=== PATIENT | female | born 1955 | race Caucasian/White ===

== ENCOUNTER → 2020-03-11 13:13 | Outpatient (BNVA) | payer MEDICARE, BC, SELFPAY | PROVIDERS: PCP Internal Medicine; Referring Provider Internal Medicine; Visit Provider Surgery | DX: N60.91 Unspecified benign mammary dysplasia of right breast (principal) | CPT/HCPCS: 99212 ==

== ENCOUNTER 2020-03-22 13:53 | Outpatient (REF) | payer MEDICARE, BC, SELFPAY ==
--- NOTE | 2020-03-22 | MM_ITS ---
EXAMINATION: MM SCREENING DIGITAL BREAST TOMOSYNTHESIS, BILATERAL CLINICAL INFORMATION: Screening. Asymptomatic. Personal history ADH right breast 2011. Family history breast cancer, aunt. The lifetime risk of breast cancer based on the Tyrer-Cuzick Model is 23%. COMPARISON: Mammography: 11/12/2018, 11/23/2017, 10/24/2016 TECHNIQUE: Digital breast tomosynthesis is performed in both the craniocaudal and mediolateral oblique views along with computer-aided detection (CAD). Synthesized 2D images are generated from the tomosynthesis. Additional left MLO view is provided. FINDINGS: There are scattered areas of fibroglandular density (ACR BI-RADS breast composition Category b). There is no developing density or interval mass or architectural abnormality. There are scattered bilateral round and coarse and vascular calcifications again seen. The axilla and skin contours are unremarkable. The left breast has increased tightly grouped calcifications central breast mid depth, possibly fibroadenomatous change. Patient will be recalled for additional imaging. MM/MM tomosynthesis screening BI IMPRESSION: 1. Left: Increased tightly grouped calcifications central breast, possibly fibroadenomatous change. 2. Right: No mammographic evidence of malignancy. ASSESSMENT: BI-RADS 0: Incomplete - Need Additional Imaging Evaluation RECOMMENDATION: 1. Additional views of the left breast (magnification CC, magnification ML. 2. Radiology department staff will contact the patient for additional imaging. 3. The lifetime risk of breast cancer based on the Tyrer-Cuzick Model is 23%. Additional annual adjunct screening with breast MRI may be of benefit in women with a risk score of 20% or greater. This patient's information was entered into a reminder system with a target due date for their next mammogram.
== END 2020-03-22 13:54 | disposition home or self-care (01) ==
LOC: HO.MAMMO 13:53
PROVIDERS: PCP Internal Medicine; Visit Provider Internal Medicine
DX: Z12.31 Encounter for screening mammogram for malignant neoplasm of breast (principal)
CPT/HCPCS: 77063; 77067

== ENCOUNTER 2020-04-13 11:24 | Outpatient (REF) | payer MEDICARE, BC, SELFPAY ==
--- NOTE | 2020-04-13 | MM_ITS ---
EXAMINATION: MM DIAGNOSTIC DIGITAL MAMMOGRAPHY, LEFT CLINICAL INFORMATION: Left breast calcifications. COMPARISON: Mammography: 11/12/2018 and studies dating back to 10/24/2010. TECHNIQUE: Digital mammography is performed in the following views: Magnification views of the left breast in craniocaudal and 90-degree mediolateral views. FINDINGS: There are scattered areas of fibroglandular density (ACR BI-RADS breast composition Category b). There are 3 groupings of calcifications noted about the central aspect of the left breast with slow progression over time and with the more inferior medial grouping show mild increase since study of 2018. The calcifications appear similar without linear or branching forms. The calcifications do not layer on 90-degree mediolateral views. Recommend 6-month follow-up magnification films of the left breast for follow-up. Results are provided to the patient at time of visit by the technologist. MM/MM added views LT IMPRESSION: Probably benign left breast calcifications. ASSESSMENT: BI-RADS 3: Probably Benign. RECOMMENDATION: Diagnostic mammography in 6 months. This patient's information was entered into a reminder system with a target due date for their next mammogram.
== END 2020-04-13 11:25 | disposition home or self-care (01) ==
LOC: HO.MAMMO 11:24
PROVIDERS: Visit Provider Internal Medicine
DX: R92.1 Mammographic calcification found on diagnostic imaging of breast (principal)
CPT/HCPCS: 77065

== ENCOUNTER 2020-10-12 14:54 | Outpatient (REF) | payer MEDICARE, BC, SELFPAY ==
--- NOTE | ~2020-10-12 | MM_ITS ---
EXAMINATION: MM DIAGNOSTIC DIGITAL BREAST TOMOSYNTHESIS, LEFT CLINICAL INFORMATION: Short interval follow-up probable benign calcifications central left breast. Personal history ADH contralateral right breast 2011. Family history breast cancer, maternal aunt. The lifetime risk of breast cancer based on the Tyrer-Cuzick Model is 22%. COMPARISON: Mammography: 04/13/2020, 03/22/2020 (BI-RADS 0), 11/12/2018, 11/05/2017 TECHNIQUE: Digital breast tomosynthesis is performed in both the craniocaudal and mediolateral oblique views along with computer-aided detection (CAD). Synthesized 2D images are generated from the tomosynthesis. Additional magnification CC and magnification ML views are obtained. FINDINGS: There are scattered areas of fibroglandular density (ACR BI-RADS breast composition Category b). Parenchymal pattern is similar to prior studies and there is no interval mass or architectural abnormality or developing density. The calcifications for follow-up central left breast appear coarse and circumferentially arranged, likely fibroadenomatous change. There are 2 other grouped benign chronic coarse calcifications slightly more lateral on the CC view, and slightly more superior on the ML view, both are chronic and unremarkable. Results are provided to the patient at time of visit by the technologist. MM/MM tomosynthesis diagnostic LT IMPRESSION: Calcifications for follow-up central left breast are relatively coarse and circumferentially arranged, likely fibroadenomatous change. No significant change from prior diagnostic mammography. ASSESSMENT: BI-RADS 3: Probably Benign RECOMMENDATION: Diagnostic mammography at time of annual bilateral exam, due in 6 months. This patient's information was entered into a reminder system with a target due date for their next mammogram.
== END 2020-10-12 14:55 | disposition home or self-care (01) ==
LOC: HO.MAMMO 14:54
PROVIDERS: Visit Provider Internal Medicine
DX: R92.1 Mammographic calcification found on diagnostic imaging of breast (principal)
CPT/HCPCS: 77061; 77065

== ENCOUNTER 2020-12-18 10:46 | Outpatient (REF) | payer MEDICARE, BC, SELFPAY ==
[2020-12-18 11:51] LABS: Alanine Aminotransferase 20 U/L (0-31); Albumin Level 4.3 g/dL (3.5-5.0); Alkaline Phosphatase 84 U/L (39-117); Anion Gap 15 (12-20); Aspartate Amino Transferase 17 U/L (5-31); Bilirubin Total 1.5 mg/dL (0.0-1.0); Blood Urea Nitrogen 20 mg/dL (9-16); Calcium 9.7 mg/dL (8.4-10.2); Carbon Dioxide 26 mmol/L (22-29); Chloride 105 mmol/L (96-108); Cholesterol 143 mg/dL; Estimated Glomerular Filt Rate > 60; Glucose Fasting 113 mg/dL (60-99); HDL Cholesterol 47 mg/dL; LDL Cholesterol Calculated 72 mg/dl; Potassium 4.3 mmol/L (3.3-5.1); Sodium 142 mmol/L (135-145); Total Protein 7.3 g/dL (6.5-8.0); Triglycerides 124 mg/dL
[2020-12-18 12:13] LABS: Vitamin D 25-OH Total 41.7 ng/mL (>30)
== END 2020-12-18 10:47 | disposition home or self-care (01) ==
LOC: HO.HMGCLDS 10:46
PROVIDERS: PCP Internal Medicine; Visit Provider Internal Medicine
DX: E78.00 Pure hypercholesterolemia, unspecified (principal); I10 Essential (primary) hypertension; Z78.0 Asymptomatic menopausal state
CPT/HCPCS: 36415; 80053; 80061; 82306

== ENCOUNTER 2021-04-14 14:02 | Outpatient (REF) | payer MEDICARE, BC, SELFPAY ==
--- NOTE | ~2021-04-14 | MM_ITS ---
EXAMINATION: MM DIAGNOSTIC DIGITAL BREAST TOMOSYNTHESIS, BILATERAL CLINICAL INFORMATION: Follow up left breast calcifications. Screening right breast study. The lifetime risk of breast cancer based on the Tyrer-Cuzick Model is 21.5%. Additional annual screening with breast MRI may be of benefit in women with a Score of 20% or greater. COMPARISON: Mammography: 10/12/2020 and studies dating back to 08/11/2011. TECHNIQUE: Digital breast tomosynthesis is performed in both the craniocaudal and mediolateral oblique views along with computer-aided detection (CAD). Synthesized 2D images are generated from the tomosynthesis. Spot magnification views of the left breast performed in 90 degree mediolateral and craniocaudal views. FINDINGS: There are scattered areas of fibroglandular density (ACR BI-RADS breast composition Category b). No new abnormal dominant mass or more suspicious grouping of microcalcifications identified. There appears to be stable appearance of left breast calcifications compared to previous studies dating back to 04/13/2020. The one grouping in question has a similar appearance to a few other tight grouping of calcifications which may represent calcifying fibroadenomas. Recommend 1 year follow-up diagnostic study of both breasts to include spot magnification views of the left breast for calcifications. Results are provided to the patient at time of visit by the technologist. MM/MM tomosynthesis diagnostic BI IMPRESSION: There are no significant changes from prior study. ASSESSMENT: BI-RADS 3: Probably Benign. RECOMMENDATION: Diagnostic mammography at time of next annual exam, due in 12 months. This patient's information was entered into a reminder system with a target due date for their next mammogram.
== END 2021-04-14 14:03 | disposition home or self-care (01) ==
LOC: HO.MAMMO 14:02
PROVIDERS: Visit Provider Internal Medicine
DX: R92.1 Mammographic calcification found on diagnostic imaging of breast (principal)
CPT/HCPCS: 77062; 77066

== ENCOUNTER 2021-08-29 10:46 | Outpatient (REF) | payer MEDICARE, BC, SELFPAY ==
[2021-08-29 14:14] LABS: Alanine Aminotransferase 36 U/L (0-31); Albumin Level 4.5 g/dL (3.5-5.0); Alkaline Phosphatase 79 U/L (39-117); Anion Gap 10 (12-20); Aspartate Amino Transferase 34 U/L (5-31); Bilirubin Total 1.6 mg/dL (0.0-1.0); Blood Urea Nitrogen 22 mg/dL (9-16); Calcium 9.7 mg/dL (8.4-10.2); Carbon Dioxide 27 mmol/L (22-29); Chloride 107 mmol/L (96-108); Cholesterol 167 mg/dL; Estimated Glomerular Filt Rate > 60; Glucose Fasting 118 mg/dL (60-99); HDL Cholesterol 48 mg/dL; LDL Cholesterol Calculated 82 mg/dl; Potassium 4.1 mmol/L (3.3-5.1); Sodium 140 mmol/L (135-145); Total Protein 7.4 g/dL (6.5-8.0); Triglycerides 188 mg/dL
[2021-08-29 14:35] LABS: Vitamin D 25-OH Total 34.5 ng/mL (>30)
[2021-08-29 14:46] LABS: Estimated Average Glucose 114 mg/dL; Hemoglobin A1c % 5.6 %
== END 2021-08-29 10:47 | disposition home or self-care (01) ==
LOC: HO.HMGCLDS 10:46
PROVIDERS: PCP Internal Medicine; Visit Provider Internal Medicine
DX: R73.01 Impaired fasting glucose (principal); E78.00 Pure hypercholesterolemia, unspecified; I10 Essential (primary) hypertension; Z78.0 Asymptomatic menopausal state
CPT/HCPCS: 36415; 80053; 80061; 82306; 83036

== ENCOUNTER → 2021-10-18 13:50 | Outpatient (BNVA) | payer MEDICARE, BC, SELFPAY | PROVIDERS: PCP Internal Medicine; Visit Provider Surgery | DX: N60.91 Unspecified benign mammary dysplasia of right breast (principal) | CPT/HCPCS: 99212 ==

== ENCOUNTER 2022-04-18 13:54 | Outpatient (REF) | payer MEDICARE, BC, SELFPAY ==
--- NOTE | ~2022-04-18 | MM_ITS ---
EXAMINATION: MM DIAGNOSTIC DIGITAL BREAST TOMOSYNTHESIS, BILATERAL CLINICAL INFORMATION: Due for yearly. Also follow-up probable benign tightly grouped circumferentially arranged calcifications central left breast. Prior history contralateral right breast ADH, 2011. The lifetime risk of breast cancer based on the Tyrer-Cuzick Model is 20.5%. COMPARISON: Mammography: 04/14/2021, 10/12/2020, 04/13/2020, 03/22/2020 (BI-RADS 0), 11/12/2018. TECHNIQUE: Digital breast tomosynthesis is performed in both the craniocaudal and mediolateral oblique views along with computer-aided detection (CAD). Synthesized 2D images are generated from the tomosynthesis. Additional magnification left CC and magnification left ML views are obtained. FINDINGS: There are scattered areas of fibroglandular density (ACR BI-RADS breast composition Category b). Parenchymal pattern is similar to prior studies and there is no interval mass or developing density or architectural abnormality. The axilla and skin contours are unremarkable. The calcifications for follow-up central left breast are tightly grouped circumferentially arranged. Some of the calcifications are slightly coarser and there are some additional calcifications within the circular arrangement since 2019. They are likely fibroadenomatous change similar to other tightly grouped coarse calcifications in the left breast. Calcifications will be reassessed again at next bilateral annual mammography to conclude long-term surveillance. Results are provided to the patient at time of visit by the technologist. MM/MM tomosynthesis diagnostic BI IMPRESSION: Left: -Probable benign calcifications central left breast, likely fibroadenomatous change. Right: -No mammographic evidence of malignancy. ASSESSMENT: BI-RADS 3: Probably Benign RECOMMENDATION: Diagnostic mammography at time of next annual exam, due in 12 months. This patient's information was entered into a reminder system with a target due date for their next mammogram.
== END 2022-04-18 13:55 | disposition home or self-care (01) ==
LOC: HO.MAMMO 13:54
PROVIDERS: PCP Internal Medicine; Visit Provider Internal Medicine
DX: R92.1 Mammographic calcification found on diagnostic imaging of breast (principal)
CPT/HCPCS: 77062; 77066

== ENCOUNTER 2022-05-09 08:35 | Outpatient (REF) | payer MEDICARE, BC, SELFPAY ==
[2022-05-09 11:54] LABS: Alanine Aminotransferase 26 U/L (0-31); Anion Gap 11 (12-20); Aspartate Amino Transferase 23 U/L (5-31); Blood Urea Nitrogen 20 mg/dL (9-16); Calcium 9.7 mg/dL (8.4-10.2); Carbon Dioxide 28 mmol/L (22-29); Chloride 106 mmol/L (96-108); Cholesterol 158 mg/dL; Estimated Glomerular Filt Rate > 60; Glucose Fasting 122 mg/dL (60-99); HDL Cholesterol 50 mg/dL; LDL Cholesterol Calculated 76 mg/dl; Potassium 4.3 mmol/L (3.3-5.1); Sodium 141 mmol/L (135-145); Triglycerides 164 mg/dL
== END 2022-05-09 08:36 | disposition home or self-care (01) ==
LOC: HO.HMGCLDS 08:35
PROVIDERS: PCP Internal Medicine; Visit Provider Internal Medicine
DX: R73.01 Impaired fasting glucose (principal); I10 Essential (primary) hypertension; E78.00 Pure hypercholesterolemia, unspecified
CPT/HCPCS: 36415; 80048; 80061; 84450; 84460

== ENCOUNTER 2022-05-16 13:10 | Outpatient (AMB) | payer MEDICARE, BC, SELFPAY ==
--- NOTE | 2022-05-16 13:38 | MHC.PC.OV ---
Vital Signs 05/16/22 13:39 Height 5 ft 7 in Weight 199 lb BMI 31.1 BP 144/72 H Blood Pressure Location Lt brachial Position Sitting Pulse 62 Pulse Source Pulse Oximeter Pulse Oximetry (%) 96 Oxygen Delivery Method Room Air Intake Visit Reasons: 6 month follow up Intake Note: Pt is here today for her 6 months f/u Allergies lisinopril Adverse Reaction (Verified 06/07/23 10:55) Cough Medication List - Last Reconciled 05/16/22 by Falguni Chavez MD amlodipine 5 mg PO DAILY ascorbate calcium (vitamin C) 500 mg PO DAILY aspirin 81 mg PO DAILY atorvastatin 10 mg PO DAILY calcium-vitamin D3-vitamin K 500-100-40 mg-unit-mcg 1 tab PO DAILY cholecalciferol (vitamin D3) 25 mcg PO DAILY glucosamine-chondroitin 250-200 mg (Osteo Bi-Flex) 2 tabs PO TID losartan 100 mg PO DAILY metoprolol succinate ER 100 mg PO DAILY dpkpihwy-arlgekw-bjew-lutein tabs PO Tobacco use date assessed: 05/16/22 Fall risk assessment: No Falls in past year Last assessed Fall Risk: 05/16/22 HPI 6 month follow up HPI Details 66-year-old lady with hypertension, with impaired fasting glucose and hypercholesterolemia, here today for follow-up. She has been compliant with taking her medications, but blood pressure still not at goal of less than 130/80. She had recent fasting labs done which showed lipids within normal limits, but fasting glucose is in the prediabetic range. She is up-to-date with her screening mammogram, up-to-date with her COVID vaccination and flu shot but has not yet had her pneumococcal vaccine. [facility] Medical History Intermittent lightheadedness Semicircular canal dehiscence syndrome Postural dizziness On beta danyell at home Elevated cholesterol HTN (hypertension) Family history of colon cancer in mother Impaired fasting glucose Cough due to TRACE inhibitor Arthralgia Atypical ductal hyperplasia of right breast Surgical History Hx of colonoscopy History of right breast biopsy Social History Housing: House Alcohol intake: never Patient Tobacco Use Status: Never used Tobacco e-Cigarette/Vaping Use: Never Used Second Hand Smoke Exposure: No service: No Current occupational status: retired Cognitive needs: No Hearing needs: No Vision needs: No Questionnaire PHQ-9 Over the last 2 weeks, how often have you been bothered by any of the following problems? Depression Screening Interpretation: Negative Source: Developed by Drs. Sancho Grant, Corina Hollingsworth, Олег Benz and colleagues, with an educational devonte from [employer]. Thrive Questionnaire Date Thrive assessed: 09/06/21 ELIU-7 AMB Questionnaire ELIU-7 Date ELIU - 7 assessed: 09/06/21 Source: Developed by Drs. Sancho Grant, Corina Hollingsworth, Олег Benz and colleagues, with an educational devonte from [employer]. Review of Systems Const Denies chills, Denies fatigue, Denies fever(s), Denies headache(s) and Denies weakness Eyes Reports no additional complaints ENT Denies headache(s), Denies nasal congestion, Denies nasal discharge and Denies sore throat Card Denies chest pain, Denies palpitations and Denies dyspnea Resp Denies chest congestion, Denies cough, Denies dyspnea and Denies wheezing GI Denies abdominal pain, Denies change in bowel habits and Denies heartburn Musc Reports arthralgias (recurrent in right hand and shoulders) and Reports stiffness Skin/Breast Denies breast pain, Denies breast mass and Denies rash Neuro Denies headache(s) and Denies weakness Psych Reports as per HPI Endo Denies fatigue, Denies polydipsia, Denies polyuria and Denies palpitations Drake/Lymph Denies easy bruising Aller/Immun Denies seasonal rhinorrhea and Denies wheezing Physical exam (Primary Care) Vital Signs: Last Vital Signs Pulse 62 05/16/22 13:39 BP 144/72 H 05/16/22 13:39 Pulse Ox 96 05/16/22 13:39 Oxygen Delivery Method Room Air 05/16/22 13:39 BMI result Body Mass Index 31.1 Tobacco/Smoking Status: Tobacco use Status Tobacco use date assessed 05/16/22 05/16/22 13:42 Patient Tobacco Use Status Never used Tobacco 05/16/22 13:42 e-Cigarette/Vaping Use Never Used 05/16/22 13:42 Depression Screening Interpretation: Negative Thrive Assessment: Date of Thrive Assessment Date Thrive assessed 09/06/21 05/16/22 13:42 Const General: comfortable, no acute distress and alert Nutritional Appearance: obese Orientation/consciousness: patient oriented x3 HENMT Ears: external ears normal General nose exam: Normal external nose present Mouth: moist mucous membranes Eyes General: appearance normal, both eyes and all related structures Conjunctivae: conjunctivae normal Sclerae: sclerae normal Pupils: Equal, round and reactive pupils present EOM: EOMs intact bilaterally Neck Neck: Yes full ROM, Yes no lymphadenopathy and Yes supple Resp Effort & Inspection: normal respiratory effort and able to speak in complete sentences Auscultation: clear to auscultation bilaterally Cardio Rate: regular rate Rhythm: regular rhythm Heart sounds: S1 normal heart sound present and S2 normal heart sound present GI Palpation (GI): Soft to palpation, nontender and no masses Auscultation: normal bowel sounds Skin General skin exam: no rashes or lesions noted Neuro General: patient oriented x3, gait normal, tone normal, moves all extremities, Normal light touch and pain sensation and no focal motor deficits Cranial nerves: Yes CN's II-XII intact bilaterally and Yes Equal, round and reactive pupils present Cognition (Neuro): normal cognition Extrem Other: S Results AMB Hemoglobin A1c AMB Hemoglobin A1c 5.4 % Last Edit by Alejandrina Blackmon CMA on 05/16/22 14:05 Immunizations pneumoc 20-tessy conj-dip cr(PF) 0.5 mL IM syringe Performing Provider: Falguni Chavez MD Performing Location: [facility] Administered by: Alejandrina Blackmon CMA on 05/16/22 14:02 Dose Route Admin Location Dispensed Lot Number Expiration Date NDC Merchandising Representative 0.5 mL IM Right Deltoid 0.5 mL [id number] 08/05/23 [id number] LK [employer] VIS Given Date VIS Provided VIS Publication Date 05/16/22 Single Vaccine 21 Eligibility Eligibility Date Funding Source Not [facility] Eligible 05/16/22 Private Results Reviewed Results Reviewed: Laboratory Last Values Hgb A1c (Clinic) 5.4 % (4.0-6.0) 05/16/22 14:00 ENTERED: 05/09/22-[address]: ORDERED: Met Prof Fast, AST, ALT, Lipid Panel Test Result Flag Reference Site Sodium 141 135-145 mmol/L Potassium 4.3 3.3-5.1 mmol/L CL 106 96-108 mmol/L CO2 28 22-29 mmol/L Gap 11 L 12-20 BUN 20 H 9-16 mg/dL Creat 0.88 0.5-1.4 mg/dL EGFR > 60 NOTE: For -[place] individuals, multiply the result by 1.210. Chronic Kidney Disease: Estimated GFR < 60 mL/min/1.73m2 Severe Kidney Disease: Estimated GFR < 15 mL/min/1.73m2 FBS 122 H 60-99 mg/dL A fasting glucose from 100-125 mg/dl is considered impaired (pre-diabetes). CA 9.7 8.4-10.2 mg/dL AST (GOT) 23 5-31 U/L ALT (GPT) 26 0-31 U/L Triglyceride 164 mg/dL Desirable Triglyceride: less than 150 mg/dL Borderline High Triglyceride 150-199 mg/dL High Triglyceride: 200-499 mg/dL Very High Triglyceride: greater than or equal to 5OO mg/dL Chol 158 mg/dL Desirable Cholesterol: less than 200 mg/dL Borderline High Cholesterol: 200-239 mg/dL High Cholesterol: greater than 239 mg/dL LDL Calculated 76 mg/dl Desirable LDL: less than 100 mg/dL Near Optimal/Above Optimal LDL: 110-129 mg/dL Borderline High LDL: 130-159 mg/dL High LDL: 160-189 mg/dL Very High LDL: greater than or equal to 190 mg/dL HDL 50 mg/dL Desirable HDL: greater than 40 mg/dL Note: This HDL assay may give artificially low results in patients with liver disease. Assessment and Plan Assessment & Plan (1) Family history of colon cancer in mother: Code(s): Z80.0 - Family history of malignant neoplasm of digestive organs Plan: Referred to GI for colon cancer screening (2) Colon cancer screening: Code(s): Z12.11 - Encounter for screening for malignant neoplasm of colon (3) Menopause syndrome: Code(s): N95.1 - Menopausal and female climacteric states Plan: Ordered vitamin-D level and basic metabolic panel in 6 months. Ordered DEXA scan to screen for osteoporosis (4) Hypertension: Code(s): I10 - Essential (primary) hypertension Qualifiers: Hypertension type: primary hypertension Qualified Code(s): I10 - Essential (primary) hypertension Plan: Blood pressure not at goal, increase amlodipine dose to 10 mg daily, continued on losartan 100 mg daily and metoprolol succinate ER 100 mg daily. Adherence to low-salt diet and getting regular exercise strongly recommended . Return to clinic to see nurse navigator in 2 weeks to check blood pressure (5) Hypercholesterolemia: Code(s): E78.00 - Pure hypercholesterolemia, unspecified Plan: Recent fasting labs showed elevated triglycerides with normal LDL cholesterol and HDL. Continued atorvastatin 10 mg daily, reinforced importance of following low-cholesterol diet and getting regular exercise. Recheck fasting lipid again in 6 months (6) Impaired fasting glucose: Code(s): R73.01 - Impaired fasting glucose Plan: Ordered hemoglobin A1c, basic metabolic panel to be repeated in 6 months.. Impaired glucose metabolism O2 increases risk for developing diabetes mellitus type 2, as well as heart attack and stroke later on. Lifestyle changes at just weight loss, healthy eating habits, and regular exercise are important, and can prevent the progression to diabetes (7) Need for pneumococcal 20-valent conjugate vaccination: Code(s): Z23 - Encounter for immunization Plan: Prevnar 20 given today Orders: Orders AMB Hemoglobin A1c 05/16/22 R73.01 - Impaired fasting glucose Pneumococcal 20 Immunization 05/16/22 Z23 - Encounter for immunization XR DEXA axial skeleton 04/20/23 N95.1 - Menopausal and female climacteric states Basic Metabolic Panel Fasting 6 Months I10 - Essential (primary) hypertension, E78.00 - Pure hypercholesterolemia, unspecified, R73.01 - Impaired fasting glucose Alanine Aminotransferase 6 Months I10 - Essential (primary) hypertension, E78.00 - Pure hypercholesterolemia, unspecified, R73.01 - Impaired fasting glucose Aspartate Amino Transferase 6 Months I10 - Essential (primary) hypertension, E78.00 - Pure hypercholesterolemia, unspecified, R73.01 - Impaired fasting glucose Hemoglobin A1c 6 Months I10 - Essential (primary) hypertension, E78.00 - Pure hypercholesterolemia, unspecified, R73.01 - Impaired fasting glucose Lipid Panel 6 Months I10 - Essential (primary) hypertension, E78.00 - Pure hypercholesterolemia, unspecified, R73.01 - Impaired fasting glucose Vitamin D 25-OH Total 6 Months I10 - Essential (primary) hypertension, E78.00 - Pure hypercholesterolemia, unspecified, R73.01 - Impaired fasting glucose, N95.9 - Unspecified menopausal and perimenopausal disorder Referrals Gastroenterology Referral Z12.11 - Encounter for screening for malignant neoplasm of colon, Z80.0 - Family history of malignant neoplasm of digestive organs Medications: Changed From amlodipine 5 mg PO DAILY 90 tabs 1RF To amlodipine 10 mg PO DAILY 90 tabs 1RF Coding Level of Care Code Est Pt Level 4 (49304) Diagnoses Family history of colon cancer in mother Z80.0 Colon cancer screening Z12.11 Menopause syndrome N95.1 Primary hypertension I10 Hypertension type: primary hypertension Hypercholesterolemia E78.00 Impaired fasting glucose R73.01 Need for pneumococcal 20-valent conjugate vaccination Z23
[2022-05-16 13:39] VITALS: BP 144/72; PULSE 62; O2SAT 96; BMI 31.1
== END 2022-05-16 14:14 | disposition home or self-care (01) ==
LOC: HO.HMGC 13:11
PROVIDERS: PCP Internal Medicine; Visit Provider Internal Medicine
DX: Z80.0 Family history of malignant neoplasm of digestive organs (principal); Z12.11 Encounter for screening for malignant neoplasm of colon; N95.1 Menopausal and female climacteric states; I10 Essential (primary) hypertension; E78.00 Pure hypercholesterolemia, unspecified; R73.01 Impaired fasting glucose; Z23 Encounter for immunization
CPT/HCPCS: 83036; 90471; 90677; 99214; 99499

== ENCOUNTER → 2022-07-07 11:49 | Outpatient (BNVA) | payer MEDICARE, BC, SELFPAY | PROVIDERS: PCP Internal Medicine; Visit Provider Nurse Practitioner Family | DX: Z12.11 Encounter for screening for malignant neoplasm of colon (principal) | CPT/HCPCS: 99202 ==

== ENCOUNTER → 2022-10-17 13:43 | Outpatient (BNVA) | payer MEDICARE, BC, SELFPAY | PROVIDERS: PCP Internal Medicine; Visit Provider Surgery | DX: N60.91 Unspecified benign mammary dysplasia of right breast (principal) | CPT/HCPCS: 99212 ==

== ENCOUNTER 2022-10-20 12:42 | Day surgery (SDC) | payer MEDICARE, BC, SELFPAY ==
--- NOTE | 2022-10-18 14:39 | P.CONAN_ITS ---
Documented by User: Nilam Miranda NP 10/18/22 14:46 HPI - Anesthesia Eval Consult details Narrative: 67yo F for Colonoscopy PMFSH Active Problems Active Problems: All Active Problems (Updated 10/17/22 @ 16:19 by Saira Pittman, RN) Hypertension (Acute) Hypercholesterolemia (Acute) Family history of colon cancer in mother (Acute) Impaired fasting glucose (Acute) Cough due to TRACE inhibitor (Acute) Arthralgia (Acute) Atypical ductal hyperplasia of right breast (Acute) Past Medical History Medical History (Updated 10/17/22 @ 16:19 by Saira Pittman, GEOFFREY) Arthralgia Atypical ductal hyperplasia of right breast Cough due to TRACE inhibitor Elevated cholesterol Family history of colon cancer in mother HTN (hypertension) Impaired fasting glucose On beta danyell at home Surgical History Surgical History History of right breast biopsy Social History Social History Housing: House Alcohol intake: never Patient Tobacco Use Status: Never used Tobacco e-Cigarette/Vaping Use: Never Used Second Hand Smoke Exposure: No Use of substances other than those prescribed or required for medical reasons: No Are you DNR?: No Advance Directives: No Advance Directives Information Provided: Yes Recently lost weight without trying: No Nutrition Risks: No Nutritional Risk service: No Current occupational status: retired Cognitive needs: No Hearing needs: No Vision needs: No Meds Allergies Allergy/AdvReac Type Severity Reaction Status Date / Time lisinopril AdvReac Cough Verified 10/17/22 13:51 Home Medications Medication Instructions Recorded Confirmed Last Taken Type aspirin 81 mg tablet,delayed 81 mg PO DAILY 03/11/20 10/17/22 Unknown History release cholecalciferol (vitamin D3) 25 25 mcg PO DAILY 11/16/20 10/17/22 Unknown History mcg (1,000 unit) capsule ascorbate calcium (vitamin C) 500 500 mg PO DAILY 12/28/20 10/17/22 Unknown History mg tablet calcium-vitamin D3-vitamin K 500 1 tab PO DAILY 12/28/20 10/17/22 Unknown History mg-100 unit-40 mcg chewable tablet glucosamine-chondroitin 250 mg-200 2 tab PO TID 12/28/20 10/17/22 Unknown History mg tablet (Osteo Bi-Flex) ucvhcjwg-olwhrdm-kemf-lutein tablet tab PO 12/28/20 10/17/22 Unknown History Exam Exam Date and Time: October 18, 2022 143 Pertinent Lab Results Pertinent Lab Results: Laboratory Tests 05/09/22 08:49 Sodium 141 Potassium 4.3 Chloride 106 Carbon Dioxide 28 BUN 20 H Creatinine 0.88 Assessment and Plan Assessment Anesthesia Assessment: Chart Reviewed Documented by User: Diana Montague MD 10/20/22 14:33 [facility] Past Medical History Medical History (Updated 10/17/22 @ 16:19 by Saira Pittman RN) Arthralgia Atypical ductal hyperplasia of right breast Cough due to TRACE inhibitor Elevated cholesterol Family history of colon cancer in mother HTN (hypertension) Impaired fasting glucose On beta danyell at home Family History Family history of problems with anesthesia: No Surgical History Surgical History History of right breast biopsy History of Problems with Anesthesia: No Social History Social History Housing: House Alcohol intake: never Patient Tobacco Use Status: Never used Tobacco e-Cigarette/Vaping Use: Never Used Second Hand Smoke Exposure: No Use of substances other than those prescribed or required for medical reasons: No Are you DNR?: No Advance Directives: No Advance Directives Information Provided: Yes Recently lost weight without trying: No Nutrition Risks: No Nutritional Risk service: No Current occupational status: retired Cognitive needs: No Hearing needs: No Vision needs: No Meds Allergies Allergy/AdvReac Type Severity Reaction Status Date / Time lisinopril AdvReac Cough Verified 10/17/22 13:51 Home Medications Medication Instructions Recorded Confirmed Last Taken Type aspirin 81 mg tablet,delayed 81 mg PO DAILY 03/11/20 10/17/22 Unknown History release cholecalciferol (vitamin D3) 25 25 mcg PO DAILY 11/16/20 10/17/22 Unknown History mcg (1,000 unit) capsule ascorbate calcium (vitamin C) 500 500 mg PO DAILY 12/28/20 10/17/22 Unknown History mg tablet calcium-vitamin D3-vitamin K 500 1 tab PO DAILY 12/28/20 10/17/22 Unknown History mg-100 unit-40 mcg chewable tablet glucosamine-chondroitin 250 mg-200 2 tab PO TID 12/28/20 10/17/22 Unknown History mg tablet (Osteo Bi-Flex) ftyljbdf-xfpgyow-rwif-lutein tablet tab PO 12/28/20 10/17/22 Unknown History Exam Airway Mallampati Class: II TM Dist: >3cm Neck ROM: Full Heart: rrr Lungs: cta Assessment and Plan Assessment Anesthesia Assessment: Anesthesia Plan Discussed Final Anesthetic Review Family History of Problems with Anesthesia: No History of Problems with Anesthesia: No NPO: Yes ASA Class: III Final Preanesthetic Review: No Changes in Pt Med Stat, Meds/Allgs Chart Reviewed and Consent Obtained/Reviewed Patient Risk: Intermediate Procedure Risk: Intermediate Anesthetic Plan Anesthetic Plan: MAC: Disposition: Standard PACU
[2022-10-20 13:24] VITALS: BMI 32.3
[2022-10-20 13:34] VITALS: BP 183/72; PULSE 81; RESP 16; TEMP 37.3; O2SAT 96
--- NOTE | 2022-10-20 13:45 | MHC.SHP ---
Pre-Procedural Eval Section A Date of Service: 10/20/22 The patient is an INPATIENT: No The History & Physical has been completed within 30 days and I have reviewed it.: No Section B Chief Complaint: Colon cancer screening Relevant Family History (Specify if Yes): Yes Relevant Social History: None Present Medications: see Short Stay Collaborative assessment Medical History: Significant History (Atypical ductal hyperplasia of right breast Cough due to TRACE inhibitor Family history of colon cancer in mother Impaired fasting glucose) History of Previous Operations: Relevant previous surgery/procedure and date(s) (History of right breast biopsy) Allergies: Allergies Allergy/AdvReac Type Severity Reaction Status Date / Time lisinopril AdvReac Cough Verified 10/17/22 13:51 Review of Systems Sugical H&P ROS: Negative: Constitution, Cardiovascular, Respiratory and Gastrointestinal Exam Surgical H&P Exam: Normal: Heart, Normal: Lungs, Normal: Extremities and Normal: Abdomen Plan Diagnosis/Plan: Unchanged I have reviewed the history and physical and performed a pertinent physical examination on my patient. No changes have occurred unless specified. Time Spent With Patient Time: Total time managing care of this patient today ____ minutes.
[2022-10-20] MEDS: Lactated Ringers 1,000 ML 100 ML IVCONT (13:53)
--- NOTE | 2022-10-20 14:33 | P.OP_ITS ---
Operative Note Operative Note Date of Service: 10/20/22 Narrative: COLONOSCOPY TILL CECUM WITH BIOPSIES AND SNARE POLYPECTOMY Pre-op diagnosis: Colon cancer screening, family history of colon cancer Post-op diagnosis:? Colon polyps, diverticulosis, hemorrhoids Endoscopist:? Dutch Joyce MD Anesthesia:?MAC Consent: Indications for the procedure and potential complications of bleeding, perforation, reaction to medications and missed diagnosis were discussed with the patient and informed consent was obtained. Instrument: Olympus PCF H 190 L variable stiffness pediatric colonoscope Monitoring: Vital signs and clinical assessment, intermittent blood pressure monitoring, continuous EKG monitoring, Pulse oximetry and Carbon Dioxide monitoring were done throughout the procedure. Please see anesthesia flowsheet. Colon withdrawl time was 13 minutes. Procedure: The patient was placed in the left lateral decubitis position and pre-procedure medications were administered. After a digital rectal examination of the ano-rectum, the video colonoscope was inserted into the rectum and advanced through the colon to the cecum. The colonoscope was slowly withdrawn in a retrograde panoramic fashion and the colon mucosa was carefully examined including a retroflexed view of the rectum. Findings and interventions are described below. Procedure Difficulty: Without difficulty Findings: Terminal Ileum: Not evaluated Cecum: Normal Ascending Colon: Normal Transverse Colon: Normal Descending Colon: Moderate diverticulosis Sigmoid Colon: A 5-6 mm diminutive appearing polyp - removed with a cold bx. A 7-8 mm sessile polyp - removed with a cold snare. Moderate diverticulosis Rectum: Normal Ano-rectum: Moderate internal hemorrhoids Colon preparation: Good Impression and Post Procedure Diagnosis: Colonoscopy Findings: Two small polyps removed Moderate diverticulosis seen in the left colon Moderate hemorrhoids on retroflexed exam. Plan: Await pathology results Patient has an appointment on 11/03/22 in the [facility] with Sushma Pinto FNP- BC. Repeat Colonoscopy interval based on path results - in 5 years if polyps are adenomatous and 10 years if polyps are hyperplastic. Above findings were reviewed with the patient and colon polyps and diverticulosis handouts were given in the discharge area
[2022-10-20 15:10] VITALS: BP 136/58; PULSE 67; RESP 14; TEMP 37.1; O2SAT 96
[2022-10-20 15:25] VITALS: BP 160/57; PULSE 67; RESP 16; TEMP 37.4; O2SAT 97
== END 2022-10-20 15:47 | disposition home or self-care (01) ==
PROVIDERS: PCP Internal Medicine; Visit Provider Internal Medicine Gastroenterology
PROC: 0DJD8ZZ Inspection of Lower Intestinal Tract, Via Natural or Artificial Opening Endoscopic (ICD-10-PCS; CPT 45378; principal; 2022-10-20 14:30)
DX: Z12.11 Encounter for screening for malignant neoplasm of colon (principal); Z80.0 Family history of malignant neoplasm of digestive organs; K63.5 Polyp of colon; K57.30 Diverticulosis of large intestine without perforation or abscess without bleeding; K64.8 Other hemorrhoids; I10 Essential (primary) hypertension; E78.00 Pure hypercholesterolemia, unspecified; R73.01 Impaired fasting glucose; Z79.82 Long term (current) use of aspirin; Z79.899 Other long term (current) drug therapy; Z88.8 Allergy status to other drugs, medicaments and biological substances
CPT/HCPCS: 45385; 45380; 88305

== ENCOUNTER 2022-11-03 10:36 | Outpatient (AMB) | payer MEDICARE, BC, SELFPAY ==
[2022-11-03 10:50] VITALS: BP 157/67; PULSE 56; BMI 32.9
--- NOTE | 2022-11-03 10:50 | A.OFFVIS_ITS ---
Intake Vital Signs 11/03/22 10:50 Height 5 ft 7 in Weight 210 lb 5.136 oz BMI 32.9 BP 157/67 H Blood Pressure Location Lt brachial Position Sitting Pulse 56 Intake Visit Reasons: S/P [place] screening; Dr. 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 Joyce HPI Details LAST VISIT: Colon cancer screening Patient denies any GI, cardiac or respiratory symptoms.? Denies any issues with anesthesia in the past.? Denies any history of sleep apnea.? No history infectious diseases in the past or present.? Patient is on low-dose aspirin. Family history of colorectal cancer in patient's mom and maternal grandfather. Patient denies melena, hematochezia, unintentional weight loss or ribbon like stools.? Discussed at length the pre-procedure,? prep, diet & medications as well as what to expect prior, during and after the procedure.?? Stressed the importance of good bowel prep. ?Recommended the use of Vaseline or Calmoseptine OTC & baby wipes with bowel movements to promote comfort.? ?Patient verbalizes understanding and agrees to plan of care.? She was given the opportunity to ask questions and all questions answered.? We will see her after the procedure.? Plan Medications New bisacodyl (Dulcolax (bisacodyl)) take 2 tabs at noon the day before your colonoscopy 10 mg (2 x 5 mg) PO ONCE 1 day 2 tabs 0RF Z12.11 polyethylene glycol 3350 (Miralax) As directed by gastroenterology department at [facility] 238 grams PO ONCE 238 grams 0RF Z12.11 COLONOSCOPY: Findings: Terminal Ileum: Not evaluated Cecum:? Normal Ascending Colon:? Normal Transverse Colon:? Normal Descending Colon:? Moderate diverticulosis Sigmoid Colon:? A 5-6 mm diminutive appearing polyp - removed with a cold bx. A 7-8 mm sessile polyp - removed with a cold snare. Moderate diverticulosis Rectum:? Normal Ano-rectum:? Moderate internal hemorrhoids Colon preparation:? Good? Impression and Post Procedure Diagnosis: Colonoscopy Findings: Two small polyps removed Moderate diverticulosis seen in the left colon Moderate hemorrhoids on retroflexed exam. Plan: Await pathology results Repeat Colonoscopy interval based on path results - in 5 years if polyps are adenomatous and 10 years if polyps are hyperplastic. PATHOLOGY RESULTS: Diagnosis Colon, sigmoid, polypectomies (2):? Hyperplastic mucosal polyps. TODAY'S VISIT: Patient is here today for follow-up and to discuss colonoscopy results. Patient denies any ill effects from the prep, anesthesia or procedure itself. Patient states that she has been feeling well without any GI concerning symptoms. Patient had 1 polyp removed from sigmoid colon. Biopsy showed hyperplastic mucosal polyp. Patient will need to repeat colonoscopy in 10 years. Patient voices no concerns. Denies melena, hematochezia, unintentional weight loss or ribbon like stools. Denies any dyspepsia, dysphagia or odynophagia. FOR[facility]LY [facility] Medical History Arthralgia Atypical ductal hyperplasia of right breast Cough due to TRACE inhibitor Elevated cholesterol Family history of colon cancer in mother HTN (hypertension) Impaired fasting glucose On beta danyell at home Surgical History History of right breast biopsy Hx of colonoscopy Social History Housing: House Alcohol intake: never Patient Tobacco Use Status: Never used Tobacco e-Cigarette/Vaping Use: Never Used Second Hand Smoke Exposure: No service: No Current occupational status: retired Cognitive needs: No Hearing needs: No Vision needs: No Review of Systems Const Denies weight gain and Denies weight loss ENT Reports no additional complaints, Denies dysphagia and Denies odynophagia Card Reports no additional complaints Resp Reports no additional complaints GI Denies abdominal pain, Denies belching, Denies melena, Denies bloating, Denies change in bowel habits, Denies dysphagia, Denies excessive flatus, Denies dyspepsia, Denies heartburn, Denies diarrhea, Denies loose stools, Denies nausea, Denies odynophagia and Denies vomiting Musc Reports no additional complaints Neuro Reports no additional complaints Psych Reports no additional complaints Endo Reports no additional complaints Physical Exam Vital Signs: Last Vital Signs Pulse 56 11/03/22 10:50 BP 157/67 H 11/03/22 10:50 BMI result Body Mass Index 32.9 Const General: healthy appearing, no acute distress and well developed Nutritional Appearance: obese Orientation/consciousness: patient oriented x3 HEENT Head: Yes normal to inspection, Yes normocephalic and Yes atraumatic Face and sinus: Yes normal facial exam Mouth: Normal oral and palatal mucosa present Throat: Yes posterior oropharynx normal, Yes tonsils normal and Yes uvula midline Eyes General: appearance normal, both eyes and all related structures Neck Neck: Yes normal visual inspection, Yes full ROM and Yes trachea midline Thyroid: Thyroid normal Resp Effort & Inspection: normal respiratory effort, able to speak in complete sentences, no tracheal deviation and symmetric chest movement Auscultation: clear to auscultation bilaterally Cardio Rate: regular rate Heart sounds: S1 normal heart sound present and S2 normal heart sound present GI Inspection: Yes normal to inspection, No distended and Yes obesity Palpation (GI): Soft to palpation, not firm, nontender and No hepatosplenomegaly present Auscultation: normal bowel sounds General: Yes no CVA tenderness Back/Spine/Pelvis Back: no CVA tenderness Skin General skin exam: elasticity normal, turgor normal and dry skin Neuro General: patient oriented x3 Psych Appearance: grossly normal Mental Status: mental status grossly normal Speech and movement: Normal speech and movement present Affect: normal affect Assessment & Plan Assessment & Plan (1) Status post colonoscopy: Code(s): Z98.890 - Other specified postprocedural states Plan: Hyperplastic mucosal polyp found in the sigmoid colon. Patient will repeat colonoscopy in 10 years, sooner if clinically necessary. (2) Diverticulosis: Code(s): K57.90 - Diverticulosis of intestine, part unspecified, without perforation or abscess without bleeding Plan: Moderate diverticulosis in the left side of the colon. Patient was encouraged to increase fiber in her diet. High-fiber diet list given to patient. Patient will follow-up with our office on as needed basis. She is agreeable to this plan and verbalizes understanding of instructions. She was given the opportunity to ask questions and all questions answered. Thank you for allowing me to participate in her care Coding Level of Care Code Est Pt Level 3 (43046) Diagnoses Status post colonoscopy Z98.890 Diverticulosis K57.90 Time Spent (min) 30 Comment 20 minutes spent with patient and additional 10 minutes spent reviewing her records
== END 2022-11-03 12:05 | disposition home or self-care (01) ==
PROVIDERS: PCP Internal Medicine; Visit Provider Nurse Practitioner Family
DX: Z98.890 Other specified postprocedural states (principal); K57.90 Diverticulosis of intestine, part unspecified, without perforation or abscess without bleeding
CPT/HCPCS: 99213

== ENCOUNTER → 2022-11-03 10:36 | Outpatient (BNVA) | payer MEDICARE, BC, SELFPAY | PROVIDERS: PCP Internal Medicine; Visit Provider Nurse Practitioner Family | DX: K57.90 Diverticulosis of intestine, part unspecified, without perforation or abscess without bleeding (principal); Z98.890 Other specified postprocedural states | CPT/HCPCS: 99212 ==

== ENCOUNTER 2022-11-29 08:40 | Outpatient (REF) | payer MEDICARE, BC, SELFPAY ==
[2022-11-29 11:45] LABS: Estimated Average Glucose 108 mg/dL; Hemoglobin A1c % 5.4 %
[2022-11-29 11:55] LABS: Alanine Aminotransferase 23 U/L (0-31); Anion Gap 11 (12-20); Aspartate Amino Transferase 19 U/L (5-31); Blood Urea Nitrogen 21 mg/dL (9-16); Calcium 9.7 mg/dL (8.4-10.2); Carbon Dioxide 28 mmol/L (22-29); Chloride 107 mmol/L (96-108); Cholesterol 151 mg/dL; Estimated Glomerular Filt Rate 54; Glucose Fasting 134 mg/dL (60-99); HDL Cholesterol 47 mg/dL; LDL Cholesterol Calculated 65 mg/dl; Potassium 3.8 mmol/L (3.3-5.1); Sodium 142 mmol/L (135-145); Triglycerides 196 mg/dL
[2022-11-29 12:17] LABS: Vitamin D 25-OH Total 48.3 ng/mL (>30)
== END 2022-11-29 08:41 | disposition home or self-care (01) ==
LOC: HO.HMGCLDS 08:40
PROVIDERS: PCP Internal Medicine; Visit Provider Internal Medicine
DX: E78.00 Pure hypercholesterolemia, unspecified (principal); I10 Essential (primary) hypertension; R73.01 Impaired fasting glucose; M81.0 Age-related osteoporosis without current pathological fracture
CPT/HCPCS: 36415; 80048; 80061; 82306; 83036; 84450; 84460

== ENCOUNTER 2022-12-06 10:34 | Outpatient (AMB) | payer MEDICARE, BC, SELFPAY ==
--- NOTE | 2022-12-06 10:57 | MHC.PC.OV ---
Vital Signs 12/06/22 11:13 Height 5 ft 7 in Weight 205 lb BMI 32.1 BP 138/70 Blood Pressure Location Lt brachial Position Sitting Pulse 68 Pulse Source Pulse Oximeter Pulse Oximetry (%) 96 Oxygen Delivery Method Room Air Intake Visit Reasons: 6 month follow up Intake Note: Pt is here today for her 6months f/u labs and also took a fall at home x3days ago Rt arm hurts Allergies lisinopril Adverse Reaction (Verified 12/06/22 11:28) Cough Medication List - Last Reconciled 12/06/22 by Falguni Chavez MD amlodipine 10 mg PO DAILY ascorbate calcium (vitamin C) 500 mg PO DAILY aspirin 81 mg PO DAILY atorvastatin 10 mg PO DAILY calcium-vitamin D3-vitamin K 500-100-40 mg-unit-mcg 1 tab PO DAILY cholecalciferol (vitamin D3) 25 mcg PO DAILY glucosamine-chondroitin 250-200 mg (Osteo Bi-Flex) 2 tabs PO TID losartan 100 mg PO DAILY metoprolol succinate ER 100 mg PO DAILY joyrepbd-txwezzj-xzdz-lutein tabs PO Tobacco use date assessed: 12/06/22 Fall risk assessment: 2 + Falls in past year Last assessed Fall Risk: 12/06/22 Dental Screening Dental Screen Date: 12/06/22 Did you have a dental visit in the last 12 months?: Yes Did you have a dental problem in the last 6 months where you did not have access to dental care?: No Was dental information given to patient?: Patient has dentist HPI 6 month follow up HPI Details 67-year-old lady with dyslipidemia, hypertension, obesity, here today for follow-up visit. Patient has been compliant with taking her medications, with blood pressure today within normal limits. She had recent fasting labs done which showed electrolytes, liver enzymes lipids and vitamin-D level within normal limits, her fasting blood sugar was mildly elevated but her hemoglobin A1c is within normal limits. She however has been having recurrent episodes of dizziness , occurs suddenly, and has no triggers. This has led to her falling many times, it with last episode occurring about 3 days ago, when she suddenly felt dizzy while walking and try to break her fall with her right arm . Complains of pain over upper arm, with decreased range of motion in right shoulder joint due to pain and stiffness. 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 She has been seen at that time by Dr. Healy, who referred her for vestibular rehab therapy which did not afford any improvement at all.. She has been told at that time to learn to live with it. [facility] Medical History (Updated 12/06/22 @ 11:49 by Falguni Chavez MD) Arthralgia Atypical ductal hyperplasia of right breast Cough due to TRACE inhibitor Elevated cholesterol Family history of colon cancer in mother HTN (hypertension) Impaired fasting glucose On beta danyell at home Postural dizziness Semicircular canal dehiscence syndrome Surgical History History of right breast biopsy Hx of colonoscopy Social History Housing: House Alcohol intake: never Patient Tobacco Use Status: Never used Tobacco e-Cigarette/Vaping Use: Never Used Second Hand Smoke Exposure: No service: No Current occupational status: retired Cognitive needs: No Hearing needs: No Vision needs: No Questionnaire PHQ-9 Over the last 2 weeks, how often have you been bothered by any of the following problems? 1. Little interest or pleasure in doing things: not at all 2. Feeling down, depressed, or hopeless: not at all 3. Trouble falling or staying asleep, or sleeping too much: not at all 4. Feeling tired or having little energy: not at all 5. Poor appetite or overeating: not at all 6. Feeling bad about yourself - or that you are a failure or have let yourself or your family down: not at all 7. Trouble concentrating on things, such as reading the newspaper or watching television: not at all 8. Moving or speaking so slowly that other people could have noticed. Or the opposite - being so fidgety or restless that you have been moving around a lot more than usual: not at all 9. Thoughts that you would be better off or of hurting yourself in some way: not at all Total score: 0 Depression Screening Interpretation: Negative 44680 - PHQ-9 Billing: Yes Source: Developed by Drs. Sancho Grant, Corina HollingsworthОлег and colleagues, with an educational devonte from [employer]. Thrive Questionnaire Date Thrive assessed: 12/06/22 I am a: Patient What is your living situation today?: I have a steady place to live Within the past 12 months, did the food you bought not last and you didn't have the money to get more?: Never true Within the past 12 months, did you worry whether your food would run out before you got money to buy more?: Never true Do you have trouble paying for medicines?: No Do you have trouble getting transportation to medical appointments?: No Do you have trouble paying your heating and electricity bill?: No Do you have trouble taking care of your child, family member or friend?: No Do you have trouble with day-to-day activities such as bathing, preparing meals, shopping, managing finances, etc.?: No Are you currently unemployed and looking for a job?: No Are you interested in more education?: No AUDIT C Alcohol Use Questionnaire (AUDIT-C) 1. How often do you have a drink containing alcohol?: Never Total Score: 0 ELIU-7 AMB Questionnaire ELIU-7 Date ELIU - 7 assessed: 12/06/22 Feeling nervous, anxious, or on edge: 0 = Not at all Not being able to stop or control worryin = Not at all Worrying too much about different things: 0 = Not at all Trouble relaxin = Not at all Being so restless that it is hard to sit still: 0 = Not at all Becoming easily annoyed or irritable: 0 = Not at all Feeling afraid as if something awful might happen: 0 = Not at all Total ELIU-7 score (0-4 normal; 5-9 mild; 10-14 moderate; 15-21 severe): 0 Source: Developed by Drs. Sancho Grant, Олег Knott and colleagues, with an educational devonte from [employer]. ELIU-7 Assessment Billing ELIU-7 Assessment Tool: ELIU-7 Assessment 17473 Review of Systems Const Denies chills, Denies fatigue, Denies fever(s), Denies headache(s) and Denies weakness Eyes Reports no additional complaints ENT Denies headache(s), Denies nasal congestion, Denies nasal discharge and Denies sore throat Card Denies chest pain, Denies palpitations and Denies dyspnea Resp Denies chest congestion, Denies cough, Denies dyspnea and Denies wheezing GI Denies abdominal pain, Denies change in bowel habits and Denies heartburn Musc Reports arthralgias (recurrent in right hand and shoulders) and Reports stiffness Skin/Breast Denies breast pain, Denies breast mass and Denies rash Neuro Denies headache(s) and Denies weakness Psych Reports as per HPI Endo Denies fatigue, Denies polydipsia, Denies polyuria and Denies palpitations Drake/Lymph Denies easy bruising Aller/Immun Denies seasonal rhinorrhea and Denies wheezing Physical exam (Primary Care) Vital Signs: Last Vital Signs Pulse 68 12/06/22 11:13 BP 138/70 12/06/22 11:13 Pulse Ox 96 12/06/22 11:13 Oxygen Delivery Method Room Air 12/06/22 11:13 BMI result Body Mass Index 32.1 Tobacco/Smoking Status: Tobacco use Status Tobacco use date assessed 12/06/22 12/06/22 10:59 Patient Tobacco Use Status Never used Tobacco 12/06/22 10:59 e-Cigarette/Vaping Use Never Used 12/06/22 10:59 PHQ-9: PHQ-9 Score PHQ-9: Total score 0 12/06/22 11:48 Depression Screening Interpretation: Negative Thrive Assessment: Date of Thrive Assessment Date Thrive assessed 12/06/22 12/06/22 11:21 Const General: comfortable, no acute distress and alert Nutritional Appearance: obese Orientation/consciousness: patient oriented x3 HENMT Ears: external ears normal General nose exam: Normal external nose present Mouth: moist mucous membranes Eyes General: appearance normal, both eyes and all related structures Conjunctivae: conjunctivae normal Sclerae: sclerae normal Pupils: Equal, round and reactive pupils present EOM: EOMs intact bilaterally Neck Neck: Yes full ROM, Yes no lymphadenopathy and Yes supple Resp Effort & Inspection: normal respiratory effort and able to speak in complete sentences Auscultation: clear to auscultation bilaterally Cardio Rate: regular rate Rhythm: regular rhythm Heart sounds: S1 normal heart sound present and S2 normal heart sound present GI Palpation (GI): Soft to palpation, nontender and no masses Auscultation: normal bowel sounds Skin General skin exam: no rashes or lesions noted Neuro General: patient oriented x3, gait normal, tone normal, moves all extremities, Normal light touch and pain sensation and no focal motor deficits Cranial nerves: Yes CN's II-XII intact bilaterally and Yes Equal, round and reactive pupils present Cognition (Neuro): normal cognition Extrem Other: Slight tenderness on palpation over right biceps, no gross bone deformity or joint swelling seen Results Reviewed Results Reviewed: SPEC : [id number] HARLAN: 11/29/22-UNK STATUS: COMP REQ : [id number] RECD: 11/29/[address]: Falguni Chavez MD COMP: 11/29/22-1216 ENTERED: 11/29/22 [facility] DR: ORDERED: Met Prof Fast, AST, ALT, Lipid Panel, Vitamin D 25-OH Test Result Flag Reference Site Sodium 142 135-145 mmol/L Potassium 3.8 3.3-5.1 mmol/L CL 107 96-108 mmol/L CO2 28 22-29 mmol/L Gap 11 L 12-20 BUN 21 H 9-16 mg/dL Creat 1.01 0.5-1.4 mg/dL EGFR 54 NOTE: For -Vincentian individuals, multiply the result by 1.210. Chronic Kidney Disease: Estimated GFR < 60 mL/min/1.73m2 Severe Kidney Disease: Estimated GFR < 15 mL/min/1.73m2 FBS 134 H 60-99 mg/dL A fasting glucose of 126 mg/dl or greater on more than one occasion is considered diagnostic of diabetes. CA 9.7 8.4-10.2 mg/dL AST (GOT) 19 5-31 U/L ALT (GPT) 23 0-31 U/L Triglyceride 196 mg/dL Desirable Triglyceride: less than 150 mg/dL Borderline High Triglyceride 150-199 mg/dL High Triglyceride: 200-499 mg/dL Very High Triglyceride: greater than or equal to 5OO mg/dL Chol 151 mg/dL Desirable Cholesterol: less than 200 mg/dL Borderline High Cholesterol: 200-239 mg/dL High Cholesterol: greater than 239 mg/dL LDL Calculated 65 mg/dl Desirable LDL: less than 100 mg/dL Near Optimal/Above Optimal LDL: 110-129 mg/dL Borderline High LDL: 130-159 mg/dL High LDL: 160-189 mg/dL Very High LDL: greater than or equal to 190 mg/dL HDL 47 mg/dL Desirable HDL: greater than 40 mg/dL Note: This HDL assay may give artificially low results in patients with liver disease. Vit D 25-OH Tot 48.3 >30 ng/mL Health Based Reference Values* < 20 ng/mL Deficient 20-30 ng/mL Insufficient > 30 ng/mL Sufficient Laboratory Tests 11/29/22 Unknown Estimat Average Glucose 108 Hemoglobin A1c % 5.4 Assessment and Plan Assessment & Plan (1) Semicircular canal dehiscence syndrome: Comment: left side seen on CT and MRI in 2017, no improvement with vestibular rehab therapy Code(s): H83.8X9 - Other specified diseases of inner ear, unspecified ear Plan: Patient reports worsening frequency of lightheadedness, causing frequent falls. Has tried vestibular rehab in the past which has not helped. Referred to ENT for further evaluation and management (2) Postural dizziness: Code(s): R42 - Dizziness and giddiness (3) Right shoulder pain: Code(s): M25.511 - Pain in right shoulder Plan: Advised to do range of motion exercises with right arm. X-ray of right shoulder ordered, referred to physical therapy for further evaluation management. (4) History of fall: Code(s): Z91.81 - History of falling (5) Hypertension: Code(s): I10 - Essential (primary) hypertension Qualifiers: Hypertension type: primary hypertension Qualified Code(s): I10 - Essential (primary) hypertension Plan: Better blood pressure controlled seen, continue with amlodipine 10 mg daily, losartan 100 mg daily and metoprolol succinate ER 100 mg daily. Reinforced importance of following a low sodium diet, getting regular exercise, and lowering stress levels. (6) Hypercholesterolemia: Code(s): E78.00 - Pure hypercholesterolemia, unspecified Plan: Reviewed recent fasting lipid profile with patient with levels within normal limits . Continue with atorvastatin 10 mg daily , in addition to adherence to low-cholesterol diet and regular exercise, at least 30 minutes 3 to 4 times a week. Advised patient to make healthy food choices, eat more fruits, vegetables, whole grains, wild caught fish and low-fat dairy. Limit amount of meat and fried or fatty food products, as well as processed foods and fast foods. Follow-up scheduled with repeat fasting lipid panel in 6 months. (7) Impaired fasting glucose: Code(s): R73.01 - Impaired fasting glucose Plan: Your fasting blood sugars elevated above 100 mg/dL. Impaired glucose metabolism O2 at risk for developing diabetes mellitus type 2, as well as heart attack and stroke later on. Lifestyle changes at just weight loss, healthy eating habits, and regular exercise are important, and can prevent the progression to diabetes Orders: Orders PT Evaluation and Treatment 12/06/22 M25.511 - Pain in right shoulder, Z91.81 - History of falling XR shoulder RT min 2V 12/06/22 M25.511 - Pain in right shoulder, Z91.81 - History of falling Alanine Aminotransferase 6 Months E78.00 - Pure hypercholesterolemia, unspecified, I10 - Essential (primary) hypertension, R73.01 - Impaired fasting glucose Aspartate Amino Transferase 6 Months E78.00 - Pure hypercholesterolemia, unspecified, I10 - Essential (primary) hypertension, R73.01 - Impaired fasting glucose Basic Metabolic Panel Fasting 6 Months E78.00 - Pure hypercholesterolemia, unspecified, I10 - Essential (primary) hypertension, R73.01 - Impaired fasting glucose Lipid Panel 6 Months E78.00 - Pure hypercholesterolemia, unspecified, I10 - Essential (primary) hypertension, R73.01 - Impaired fasting glucose Referrals Ear/Nose/Throat Referral H83.8X9 - Other specified diseases of inner ear, unspecified ear, R42 - Dizziness and giddiness Coding Level of Care Code Est Pt Level 4 (84354) Diagnoses Semicircular canal dehiscence syndrome H83.8X9 Postural dizziness R42 Right shoulder pain M25.511 History of fall Z91.81 Hypertension I10 Hypertension type: primary hypertension Hypercholesterolemia E78.00 Impaired fasting glucose R73.01 Additional Codes ELIU-7 Assessment Billing - ELIU-7 Assessment Tool: ELIU-7 Assessment 20863 ([id number])
[2022-12-06 11:13] VITALS: BP 138/70; PULSE 68; O2SAT 96; BMI 32.1
== END 2022-12-06 11:49 | disposition home or self-care (01) ==
PROVIDERS: Visit Provider Internal Medicine
DX: I10 Essential (primary) hypertension (principal); R42 Dizziness and giddiness; Z91.81 History of falling; M25.511 Pain in right shoulder; E78.00 Pure hypercholesterolemia, unspecified; R73.01 Impaired fasting glucose
CPT/HCPCS: 99214

== ENCOUNTER 2022-12-06 11:50 | Outpatient (REF) | payer MEDICARE, BC, SELFPAY ==
--- NOTE | ~2022-12-06 | XR_ITS ---
EXAMINATION: XR SHOULDER, RIGHT CLINICAL INFORMATION: Right shoulder pain. COMPARISON: None available. TECHNIQUE: AP external rotation, Grashey, scapular Y, and axillary views of the right shoulder. FINDINGS: Glenohumeral alignment is anatomic with normal joint space. Hypertrophic changes of the acromioclavicular joint. No displaced fracture or dislocation. No abnormal soft tissue calcifications. XR/XR shoulder RT min 2V IMPRESSION: No acute abnormality.
== END 2022-12-06 11:51 | disposition home or self-care (01) ==
LOC: HO.HMGCX 11:50
PROVIDERS: PCP Internal Medicine; Visit Provider Internal Medicine
DX: M25.511 Pain in right shoulder (principal); Z91.81 History of falling
CPT/HCPCS: 73030

== ENCOUNTER 2023-01-23 11:00 | Outpatient (RCR) | payer MEDICARE, BC, SELFPAY ==
--- NOTE | 2022-12-19 12:53 | MHC.PT.EP ---
[facility] [place] Office [place] Office [place] Office [address] Juve Gilbert [address] [phone] F: [phone] F: [phone] F: [phone] F: [phone] Physical Therapy Plan of Care Date of Evaluation: Date of Surgery: Diagnosis: This is a 67 yo female presenting to skilled PT with a script for R shoulder pain. Assessment: This is a 67 yo female presenting to skilled PT with a script for R shoulder pain. Patient reports a fall 2 weeks ago when she landed on her R side (elbow) on tile. She feels like it was injured more from trying to get off the floor vs the fall itself. Pain is improving but still bothers her when she moves it in all directions, sleeping on that side, driving, ADLs and housework. Pain is sharp with movement and achy at rest. Pain is located at the bicep muscle and medial scapular region. Denies numbness or tingling, radiating symptoms into the lower arm or neck pain. She has been using ice and Alleve for pain relief. Assessment reveals pain that ranges from up to an 8/10 at the worst. Patient demos decreased R shoulder ROM, strength of B scapular muscles and B RTC muscles, s/s with bicep tendon strain and ACJ compression from fall. She demos impaired posture with forward head and rounded shoulders and compensates with adducted and IR posturing for functional movements. Based on functional limitations, impaired QOL and pain tolerance patient is a good candidate for skilled PT 2x/wk for 4wks. Frequency and Duration: The patient will be seen 2x/wk for 4wks Short Term Goals: (In 2 weeks) Demo I with HEP Improve shoulder AROM by at least 10 degs Demo proper scapular recruitment with appropriate shoulder strengthening exercises Subway Train Driver Goals: (in 4 wks) Improve shoulder nonpainful AROM to almost near equal B Demo at least 1 grade improvement in MMT for shoulder flexion, abduction and ER Improve SPADI by at least 10 points Improve overall functional QOL by at least 50% Treatment Plan: Modalities to reduce pain, spasms and effusion. Manual therapy to restore motion and function. Therapeutic exercise to improve strength and flexibility. Neuromuscular re-education for posture and balance. Therapeutic activities to return to functional activities of daily living. Electronically signed by: Lee Ann Sanz PT Please sign and return to therapist. Thank you for your referral.
--- NOTE | 2023-01-02 13:03 | MHC.PT.PR ---
[facility] [place] Office [place] Office [place] Office [address] Juve Gilbert [address] [phone] F: [phone] F: [phone] F: [phone] F: [phone] Physical Therapy Progress Note Diagnosis: This is a 67 yo female presenting to skilled PT with a script for R shoulder pain. Date of Surgery: Date of Evaluation: 12/19/22 Treatments to Date: 5 Cancellations to Date: 0 No Shows to Date: 0 Subjective: Patient reporting she was sore after massage last session. Pain Score and Location: 6 R bicep muscle belly/R shoulder Objective Measures: AROM: flexion 148 (unable to hold position, loses strength at end range), abduction 115, ER in 90 degs 110, IR in 90 degs 75 Assessment: Patient reporting that she feels like she has improved since initial visit however pain continues with abduction and ER. She has pain with household tasks including scooping cat litter, cleaning counters and cooking. She has a hard time sleeping on this side and it effects her UB ADLs. Her AROM flexion 148 (unable to hold position, loses strength at end range), abduction 115, ER in 90 degs 110, IR in 90 degs 75 (improved some from eval). I recommended to her to ask for a referral to the orthopedic for assessment due to nature of injury and continuing symptoms. We have 3 more appointments and will continue to assess as we go. PT Plan: Continue with PT Frequency and Duration: The patient will be seen 3 visits Treatment Plan: Therapeutic Exercise Dynamic Therapeutic Activities Neuromuscular Re-ed Manual Therapies Home Exercise Program Patient Education Hot or Cold Pack Reviewed/ Agreed with Student Documentation: Therapist: Thank you once again for your referral.
--- NOTE | 2023-02-21 10:06 | MHC.PT.DC ---
[facility] [place] Office [place] Office [place] Office [address] Juve Gilbert [address] [phone] F: [phone] F: [phone] F: [phone] F: [phone] Physical Therapy Discharge Report Diagnosis: This is a 67 yo female presenting to skilled PT with a script for R shoulder pain. Date of Surgery: Date of Evaluation: 12/19/22 Date of Discharge: 02/21/23 Treatments to Date: 9 Cancellations to Date: 0 No Shows to Date: 0 Discharge Status: Achieved Goals Improved Function Independent with HEP Discharge Summary: Patient reporting that she is much better, she has no more pain (mild at the most) and reports that she is able to do ADLs and housework again without issues. She is I in her HEP and ready to DC at this time. I closed her chart after 30 days as patient did not return with any further symptoms or need for PT management. Electronically signed by: Lee Ann Sanz, PT Please sign and return to therapist. Thank you for your referral.
== END 2023-02-21 10:06 | disposition home or self-care (01) ==
LOC: HO.PTCHIC 11:00
PROVIDERS: PCP Internal Medicine; Visit Provider Internal Medicine
DX: M25.511 Pain in right shoulder (principal)
CPT/HCPCS: 97110; 97140; 97162; 97530

== ENCOUNTER 2023-05-15 13:46 | Outpatient (REF) | payer MEDICARE, BC, SELFPAY ==
--- NOTE | ~2023-05-15 | MM_ITS ---
EXAMINATION: BONE DENSITOMETRY CLINICAL INDICATION: Menopause. COMPARISON: Previous BD dated 11/12/2018 and baseline BD dated 02/12/2014. TECHNIQUE: Using a Secure [employer] DXA System (software version: 13.1) manufactured by [employer], dual-energy x-ray absorptiometry was performed of the lumbar spine and left hip. The images are of good technical quality. Summary results are attached. FINDINGS: LEFT FEMUR, NECK: Current: BMD 0.913 g/cm2, Z-score 0.2, T-score -0.9, normal. Prior: BMD 0.899 g/cm2. Baseline: BMD 0.885 g/cm2. LEFT FEMUR, TOTAL: Current: BMD 0.954 g/cm2, Z-score 0.4, T-score -0.4, normal, 1.8% increase from previous, 0.6% increase from baseline (<5% change is not significant). Prior: BMD 0.937 g/cm2. Baseline: BMD 0.948 g/cm2. AP SPINE L1-L3 (excluding L4): The data of L1-L4 has been changed to exclude the L4 vertebral body, because degenerative sclerosis at this level may cause overestimation of lumbar spine density. Current: BMD 1.139 g/cm2, Z-score 0.6, T-score -0.3, normal, 5.1% increase from previous, 0.6% increase from baseline (<5% change is not significant). Prior: BMD 1.084 g/cm2. Baseline: BMD 1.132 g/cm2. IDENTIFIED RISK FACTORS: Early menopause, family history (parent hip fracture), left oophorectomy, secondary osteoporosis. HISTORY OF FRACTURE: None listed. MEDICATIONS: Calcium, vitamin D. MM/XR DEXA axial skeleton IMPRESSION: 1. DIAGNOSIS: Normal bone density based on the lowest T-score value of -0.9 in the femoral neck applying World Health Organization criteria. 2. 10-YEAR FRACTURE RISK PREDICTION, FRAX: According to the guidelines, FRAX calculation should only be performed on patients in the osteopenia bone density category. Therefore, FRAX was not performed on this patient. 3. Treatment Recommendations: NOF guidelines recommend consideration for treatment in postmenopausal women and men age 50 and older presenting with the following: -A hip or vertebral (clinical or morphometric) fracture. -T-score less than or equal to -2.5 at the femoral neck or spine after appropriate evaluation to exclude secondary causes. -Low bone mass at the hip or spine and a 10-year fracture probability by FRAX of greater than or equal to 3% for hip fracture or greater than or equal to 20% for major osteoporotic fracture based on the [place] adapted WHO algorithm. 4. Other Recommendations: All treatment decisions require clinical judgment and consideration of individual patient factors, including patient preferences, comorbidities, previous drug use, risk factors not captured in the FRAX model (e.g. frailty, falls, vitamin D deficiency, increased bone turnover, interval significant decline in bone density) and possible under or overestimation of fracture risk by FRAX. FUTURE SCAN RECOMMENDATION: People with diagnosed cases of osteoporosis or at high risk for fracture should have regular bone mineral density tests. For patients eligible for Medicare, routine testing is allowed once every 2 years. The testing frequency can be increased to one year for patients who have rapidly progressing disease, those who are receiving or discontinuing medical therapy to restore bone mass, or have additional risk factors.
--- NOTE | ~2023-05-15 | MM_ITS ---
EXAMINATION: MM DIAGNOSTIC DIGITAL BREAST TOMOSYNTHESIS, BILATERAL CLINICAL INFORMATION: Year 2 6 month follow-up for left breast calcifications centrally which are probably benign. Prior history contralateral right breast ADH, 2011. Patient also due for bilateral screening. COMPARISON: Mammography: 04/18/2022, 04/14/2021, 10/12/2020, 04/13/2020, 03/22/2020 (BI-RADS 0), 11/12/2018. TECHNIQUE: Digital breast tomosynthesis is performed in both the craniocaudal and mediolateral oblique views along with computer-aided detection (CAD). Synthesized 2D images are generated from the tomosynthesis. In addition, 2-D spot magnification views of the left breast were obtained in the CC and ML projections. FINDINGS: There are scattered areas of fibroglandular density (ACR BI-RADS breast composition Category b). The calcifications for follow-up in the central aspect of the left breast are entirely unchanged in both number, arrangement, and morphology compared to prior magnification views, and have remained stable over 2 years, establishing benignity. No further follow-up recommended. Otherwise, there are benign vascular calcifications, and a few scattered bilateral benign dystrophic calcifications. There are no suspicious masses, developing suspicious grouped calcifications, or areas of architectural distortion in either breast. The parenchymal pattern is stable from prior exams. MM/MM tomosynthesis diagnostic BI IMPRESSION: There are no findings suspicious for malignancy in either breast. Left breast central calcifications of remained unchanged and stable over a two-year time period, establishing benignity. No further follow-up is recommended. These are benign. Additional benign findings in both breasts as detailed. Recommend the patient return to routine annual screening. ASSESSMENT: BI-RADS BI-RADS 2 - Benign Findings RECOMMENDATION: 1 year F/U Results were provided to the patient at time of visit by the technologist. This patient's information was entered into a reminder system with a target due date for their next mammogram.
== END 2023-05-15 13:47 | disposition home or self-care (01) ==
LOC: HO.MAMMO 13:46
PROVIDERS: PCP Internal Medicine; Visit Provider Internal Medicine
DX: R92.1 Mammographic calcification found on diagnostic imaging of breast (principal); Z13.820 Encounter for screening for osteoporosis; Z78.0 Asymptomatic menopausal state; Z90.721 Acquired absence of ovaries, unilateral
CPT/HCPCS: 77062; 77066; 77080

== ENCOUNTER → 2023-05-15 14:30 | Outpatient (BNV) | payer MEDICARE, BC, SELFPAY | PROVIDERS: PCP Internal Medicine; Visit Provider Radiology Diagnostic Radiology | DX: R92.1 Mammographic calcification found on diagnostic imaging of breast (principal) | CPT/HCPCS: 77062; 77066 ==

== ENCOUNTER 2023-05-31 11:15 | Outpatient (REF) | payer MEDICARE, BC, SELFPAY ==
[2023-05-31 13:24] LABS: Alanine Aminotransferase 23 U/L (0-31); Anion Gap 15 (12-20); Aspartate Amino Transferase 22 U/L (5-31); Blood Urea Nitrogen 15 mg/dL (9-16); Calcium 9.8 mg/dL (8.4-10.2); Carbon Dioxide 27 mmol/L (22-29); Chloride 104 mmol/L (96-108); Cholesterol 162 mg/dL (<200); Estimated Glomerular Filt Rate 57; Glucose Fasting 124 mg/dL (60-99); HDL Cholesterol 53 mg/dL (>40); LDL Cholesterol Calculated 74 mg/dL (<100); Sodium 142 mmol/L (135-145); Triglycerides 175 mg/dL (<150)
== END 2023-05-31 11:16 | disposition home or self-care (01) ==
LOC: HO.HMGCLDS 11:15
PROVIDERS: PCP Internal Medicine; Visit Provider Internal Medicine
DX: I10 Essential (primary) hypertension (principal); R73.01 Impaired fasting glucose; E78.00 Pure hypercholesterolemia, unspecified
CPT/HCPCS: 36415; 80048; 80061; 84450; 84460

== ENCOUNTER 2023-06-07 10:39 | Outpatient (AMB) | payer MEDICARE, BC, SELFPAY ==
[2023-06-07 10:45] VITALS: BP 140/70; PULSE 71; O2SAT 96; BMI 31.0
--- NOTE | 2023-06-07 10:45 | A.OFFPC_ITS ---
Vital Signs 06/07/23 10:45 Height 5 ft 7 in Weight 198 lb BMI 31.0 BP 140/70 H Blood Pressure Location Lt brachial Position Sitting Pulse 71 Pulse Source Pulse Oximeter Pulse Oximetry (%) 96 Oxygen Delivery Method Room Air Intake Visit Reasons: 6 month f/u Intake Note: Pt is here today for her 6 months f/u Allergies lisinopril Adverse Reaction (Verified 06/07/23 10:55) Cough Medication List - Last Reconciled 06/07/23 by Falguni Chavez MD amlodipine 10 mg PO DAILY ascorbate calcium (vitamin C) 500 mg PO DAILY aspirin 81 mg PO DAILY atorvastatin 10 mg PO DAILY calcium-vitamin D3-vitamin K 500-100-40 mg-unit-mcg 1 tab PO DAILY cholecalciferol (vitamin D3) 25 mcg PO DAILY glucosamine-chondroitin 250-200 mg (Osteo Bi-Flex) 2 tabs PO TID losartan 100 mg PO DAILY metoprolol succinate ER 100 mg PO DAILY pjuokhcj-aqwxebj-smij-lutein tabs PO Tobacco use date assessed: 06/07/23 Fall risk assessment: 1 Fall in past year Last assessed Fall Risk: 06/07/23 Dental Screening Dental Screen Date: 06/07/23 Did you have a dental visit in the last 12 months?: Yes Did you have a dental problem in the last 6 months where you did not have access to dental care?: No Was dental information given to patient?: Patient has dentist HPI 6 month f/u HPI Details 67-year-old lady here today for follow-u p on her hypertension and hyperlipidemia. She is currently taking losartan 100 mg in the morning and amlodipine 10 mg at night together with metoprolol succinate ER 100 mg at bedtime. She has been checking her blood pressure at home and it has been running usually in the 150s over 90s. She has also been experiencing intermittent episodes of fast bounding heart rate on and off over the last week, which last about 10-15 minutes accompanied by dizziness and shortness of breath. This would resolve spontaneously. Denies having any cardiac symptoms at present. EKG done today showed normal sinus rhythm with evidence of left ventricular hypertrophy. Takes atorvastatin 10 mg daily with latest fasting lipids showing normal LDL cholesterol but triglycerides elevated. Recent labs also showed elevated fasting glucose in the prediabetic range. She has been referred to [facility], for evaluation intermittent episodes of positional lightheadedness, and states MRI of the brain with contrast was ordered, which did not show any abnormality. Patient states that they have now referred her to a surgeon for correction of semicircular canal dehiscence [facility] Medical History Intermittent lightheadedness Semicircular canal dehiscence syndrome Postural dizziness On beta danyell at home Elevated cholesterol HTN (hypertension) Family history of colon cancer in mother Impaired fasting glucose Cough due to TRACE inhibitor Arthralgia Atypical ductal hyperplasia of right breast Surgical History Hx of colonoscopy History of right breast biopsy Social History Housing: House Alcohol intake: never Patient Tobacco Use Status: Never used Tobacco e-Cigarette/Vaping Use: Never Used Second Hand Smoke Exposure: No service: No Current occupational status: retired Cognitive needs: No Hearing needs: No Vision needs: No Questionnaire PHQ-9 Over the last 2 weeks, how often have you been bothered by any of the following problems? 1. Little interest or pleasure in doing things: several days 2. Feeling down, depressed, or hopeless: not at all 3. Trouble falling or staying asleep, or sleeping too much: more than half the days 4. Feeling tired or having little energy: several days 5. Poor appetite or overeating: not at all 6. Feeling bad about yourself - or that you are a failure or have let yourself or your family down: not at all 7. Trouble concentrating on things, such as reading the newspaper or watching television: not at all 8. Moving or speaking so slowly that other people could have noticed. Or the opposite - being so fidgety or restless that you have been moving around a lot more than usual: several days 9. Thoughts that you would be better off or of hurting yourself in some way: not at all Total score: 5 Depression Screening Interpretation: Negative Depression Screening Done: Yes 40412 - PHQ-9 Billing: Yes Source: Developed by Drs. Sancho Grant, Corina Hollingsworth, Олег Benz and colleagues, with an educational devonte from [employer]. Thrive Questionnaire Date Thrive assessed: 06/07/23 What is your living situation today?: I choose not to answer this question Within the past 12 months, did the food you bought not last and you didn't have the money to get more?: I choose not to answer this question Within the past 12 months, did you worry whether your food would run out before you got money to buy more?: I choose not to answer this question Do you have trouble paying for medicines?: I choose not to answer this question Do you have trouble getting transportation to medical appointments?: I choose not to answer this question Do you have trouble paying your heating and electricity bill?: I choose not to answer this question Do you have trouble taking care of your child, family member or friend?: I choose not to answer this question Do you have trouble with day-to-day activities such as bathing, preparing meals, shopping, managing finances, etc.?: I choose not to answer this question Are you currently unemployed and looking for a job?: I choose not to answer this question Are you interested in more education?: I choose not to answer this question THRIVE Score: 0 AUDIT C Alcohol Use Questionnaire (AUDIT-C) 1. How often do you have a drink containing alcohol?: Never 3. How often do you have six or more drinks on one occasion?: Never Total Score: 0 ELIU-7 AMB Questionnaire ELIU-7 Date ELIU - 7 assessed: 12/06/22 Feeling nervous, anxious, or on edge: 1 = Several days Not being able to stop or control worryin = Several days Worrying too much about different things: 1 = Several days Trouble relaxin = Several days Being so restless that it is hard to sit still: 0 = Not at all Becoming easily annoyed or irritable: 1 = Several days Feeling afraid as if something awful might happen: 1 = Several days Total ELIU-7 score (0-4 normal; 5-9 mild; 10-14 moderate; 15-21 severe): 6 Source: Developed by Drs. Sancho Grant, Corina Hollingsworth, Олег Benz and colleagues, with an educational devonte from [employer]. ELIU-7 Assessment Billing ELIU-7 Assessment Tool: ELIU-7 Assessment 66940 Review of Systems Const Denies chills, Denies fatigue, Denies fever(s), Denies headache(s) and Denies weakness Eyes Reports no additional complaints ENT Denies headache(s), Denies nasal congestion, Denies nasal discharge and Denies sore throat Card Denies chest pain, Denies palpitations and Denies dyspnea Resp Denies chest congestion, Denies cough, Denies dyspnea and Denies wheezing GI Denies abdominal pain, Denies change in bowel habits and Denies heartburn Musc Reports arthralgias (recurrent in right hand and shoulders) and Reports stiffness Skin/Breast Denies breast pain, Denies breast mass and Denies rash Neuro Denies headache(s) and Denies weakness Psych Reports as per HPI Endo Denies fatigue, Denies polydipsia, Denies polyuria and Denies palpitations Drake/Lymph Denies easy bruising Aller/Immun Denies seasonal rhinorrhea and Denies wheezing Physical exam (Primary Care) Vital Signs: Last Vital Signs Pulse 71 06/07/23 10:45 BP 140/70 H 06/07/23 10:45 Pulse Ox 96 06/07/23 10:45 Oxygen Delivery Method Room Air 06/07/23 10:45 BMI result Body Mass Index 31.0 Tobacco/Smoking Status: Tobacco use Status Tobacco use date assessed 06/07/23 06/07/23 10:53 Patient Tobacco Use Status Never used Tobacco 06/07/23 10:53 e-Cigarette/Vaping Use Never Used 06/07/23 10:53 PHQ-9: PHQ-9 Score PHQ-9: Total score 5 06/07/23 13:20 Depression Screening Interpretation: Negative Thrive Assessment: Date of Thrive Assessment Date Thrive assessed 06/07/23 06/07/23 10:53 Const General: comfortable, no acute distress and alert Nutritional Appearance: obese Orientation/consciousness: patient oriented x3 HENMT Ears: external ears normal General nose exam: Normal external nose present Mouth: moist mucous membranes Eyes General: appearance normal, both eyes and all related structures Conjunctivae: conjunctivae normal Sclerae: sclerae normal Pupils: Equal, round and reactive pupils present EOM: EOMs intact bilaterally Neck Neck: Yes full ROM, Yes no lymphadenopathy and Yes supple Resp Effort & Inspection: normal respiratory effort and able to speak in complete sentences Auscultation: clear to auscultation bilaterally Cardio Rate: regular rate Rhythm: regular rhythm Heart sounds: S1 normal heart sound present and S2 normal heart sound present GI Palpation (GI): Soft to palpation, nontender and no masses Auscultation: normal bowel sounds Skin General skin exam: no rashes or lesions noted Neuro General: patient oriented x3, gait normal, tone normal, moves all extremities, Normal light touch and pain sensation and no focal motor deficits Cranial nerves: Yes CN's II-XII intact bilaterally and Yes Equal, round and reactive pupils present Cognition (Neuro): normal cognition Extrem Other: S Results Reviewed Results Reviewed: RUN: 06/07/23 1055 PAGE 1 [facility] [address] [place] [id number] [employer] Professor: Garfield Thakkar M.D. Specimen Inquiry Name: Claudio Reyna Age/Sex: 67/F : 1955 Unit#: [id number] Attend Dr: Falguni Chavez MD Re05/31/23 Status: DEP [facility]: SPEC : [id number] HARLAN: 05/31/23 STATUS: COMP REQ : [id number] RECD: 05/31/23-[address]: Falguni Chavez MD COMP: 05/31/23-4 ENTERED: 05/31/23-1124 [facility] DR: ORDERED: Met Prof Fast, AST, ALT, Lipid Panel Test Result Flag Reference Sodium 142 135-145 mmol/L Potassium 4.0 3.3-5.1 mmol/L CL 104 96-108 mmol/L CO2 27 22-29 mmol/L Gap 15 12-20 BUN 15 9-16 mg/dL Creat 0.97 0.5-1.4 mg/dL EGFR 57 NOTE: For -[place] individuals, multiply the result by 1.210. Chronic Kidney Disease: Estimated GFR < 60 mL/min/1.73m2 Severe Kidney Disease: Estimated GFR < 15 mL/min/1.73m2 FBS 124 H 60-99 mg/dL A fasting glucose from 100-125 mg/dl is considered impaired (pre-diabetes). CA 9.8 8.4-10.2 mg/dL AST (GOT) 22 5-31 U/L ALT (GPT) 23 0-31 U/L Triglyceride 175 H <150 mg/dL Desirable Triglyceride: less than 150 mg/dL Borderline High Triglyceride 150-199 mg/dL High Triglyceride: 200-499 mg/dL Very High Triglyceride: greater than or equal to 5OO mg/dL Cholesterol 162 <200 mg/dL Desirable Cholesterol: less than 200 mg/dL Borderline High Cholesterol: 200-239 mg/dL High Cholesterol: greater than 239 mg/dL LDL Calculated 74 <100 mg/dL Desirable LDL: less than 100 mg/dL Near Optimal/Above Optimal LDL: 110-129 mg/dL Borderline High LDL: 130-159 mg/dL High LDL: 160-189 mg/dL Very High LDL: greater than or equal to 190 mg/dL HDL 53 >40 mg/dL Desirable HDL: greater than 40 mg/dL Note: This HDL assay may give artificially low results in patients with liver disease. Assessment and Plan Assessment & Plan (1) Intermittent lightheadedness: Code(s): R42 - Dizziness and giddiness Plan: seen by [facility], for evaluation of intermittent episodes of positional lightheadedness, had MRI of the brain with contrast , which did not show any abnormality. Patient states that they have now referred her to a surgeon for correction of semicircular canal dehiscence (2) Intermittent palpitations: Code(s): R00.2 - Palpitations Plan: EKG done today showed normal sinus rhythm with evidence of left ventricular hypertrophy . Cardiology consult ordered for further evaluation (3) Hypertension: Code(s): I10 - Essential (primary) hypertension Qualifiers: Hypertension type: primary hypertension Qualified Code(s): I10 - Essential (primary) hypertension Plan: Continue losartan, amlodipine and metoprolol ER but switch dosing of amlodipine to a.m. history of nighttime. Continue with adherence to low-sodium diet, and encouraged to do regular exercise at least 30 minutes of cardio every day. See nurse navigator in 2 weeks to check blood pressure, bring blood pressure cuff on visit to compare with readings in clinic. Return to clinic to check blood pressure in 2 weeks (4) Impaired fasting glucose: Code(s): R73.01 - Impaired fasting glucose Plan: Latest fasting blood sugar was 124 mg/dL. Impaired glucose metabolism O2 at risk for developing diabetes mellitus type 2, as well as heart attack and stroke later on. Lifestyle changes at just weight loss, healthy eating habits, and regular exercise are important, and can prevent the progression to diabetes (5) Hypercholesterolemia: Code(s): E78.00 - Pure hypercholesterolemia, unspecified Plan: Latest fasting lipid panel showed results within normal limits. Continue atorvastatin 10 mg daily, in addition to adhering to healthy eating habits and regular exercise. Orders: Orders AMB EKG-In Office 06/07/23 R00.2 - Palpitations, R42 - Dizziness and giddiness Referrals Cardiology Referral R00.2 - Palpitations, R42 - Dizziness and giddiness Coding Level of Care Code Est Pt Level 4 (78096) Diagnoses Intermittent lightheadedness R42 Intermittent palpitations R00.2 Primary hypertension I10 Hypertension type: primary hypertension Impaired fasting glucose R73.01 Hypercholesterolemia E78.00 Additional Codes ELIU-7 Assessment Billing - ELIU-7 Assessment Tool: ELIU-7 Assessment 77170 ([id number])
== END 2023-06-07 15:27 | disposition home or self-care (01) ==
PROVIDERS: PCP Internal Medicine; Visit Provider Internal Medicine
DX: R42 Dizziness and giddiness (principal); R00.2 Palpitations; I10 Essential (primary) hypertension; R73.01 Impaired fasting glucose; E78.00 Pure hypercholesterolemia, unspecified
CPT/HCPCS: 99214

== ENCOUNTER 2023-10-16 09:46 | Outpatient (AMB) | payer MEDICARE, BC, SELFPAY ==
[2023-10-16 09:59] VITALS: BMI 32.4
--- NOTE | 2023-10-16 09:59 | MHC.OFFVIS ---
Vital Signs 10/16/23 09:59 Height 5 ft 7 in Weight 207 lb BMI 32.4 Intake Visit Reasons: Yearly Breast Exam Intake Note: This patient presents for a yearly breast exam. Pt c/o; reports no complaints. Frame Polisher Required: No Accompanied by: Self / Same As Patient Allergies lisinopril Adverse Reaction (Verified 10/16/23 10:05) Cough HPI Comments Details: 68-year-old female patient, former patient of Dr. Maxwell, with a prior history of atypical ductal hyperplasia of the right breast, s/p right breast lumpectomy with needle localization on 09/11/2011. She feels well and denies any current breast pain, breast lumps, nipple discharge, or other breast symptoms. Her most recent mammogram performed on 05/15/2023 revealed no suspicious changes in stable calcifications for the past 2 years. This was felt to be benign (BI-RADS 2). Follow-up mammogram in 1 year is recommended. She reports that she may be moving to [place] this year to be closer to her brother now that her has . [facility] Medical History Intermittent lightheadedness Semicircular canal dehiscence syndrome Postural dizziness On beta danyell at home Elevated cholesterol HTN (hypertension) Family history of colon cancer in mother Impaired fasting glucose Cough due to TRACE inhibitor Arthralgia Atypical ductal hyperplasia of right breast Surgical History Hx of colonoscopy History of right breast biopsy Social History Housing: House Alcohol intake: never Patient Tobacco Use Status: Never used Tobacco e-Cigarette/Vaping Use: Never Used Second Hand Smoke Exposure: No service: No Current occupational status: retired Cognitive needs: No Hearing needs: No Vision needs: No Review of Systems Const All systems reviewed & are unremarkable except as noted in HPI and below Physical Exam Vital Signs: BMI result Body Mass Index 32.4 Const General: no acute distress and well developed Nutritional Appearance: well nourished Orientation/consciousness: patient oriented x3 Limitations: no limitations HEENT Head: Yes normocephalic and Yes atraumatic Ears: hearing grossly normal bilaterally Chest Other: Right breast well-healed incision in the lower areola. No other skin change, palpable mass, nipple discharge, or enlarged lymph nodes. Left breast: No skin change, nipple discharge, palpable mass, or enlarged lymph nodes. Chest/axillae images: 1. Incision right breast Resp Effort & Inspection: normal respiratory effort, no audible wheezes, no cough and no respiratory distress GI Inspection: Yes normal to inspection Neuro General: patient oriented x3 Extrem Other: No edema Assessment & Plan Assessment & Plan (1) Atypical ductal hyperplasia of right breast: Code(s): N60.91 - Unspecified benign mammary dysplasia of right breast Category: Medical Plan 68-year-old female patient with prior history of atypical ductal hyperplasia excised in 09/11/2011 returning today for follow-up breast examination. Most recent mammogram of 05/15/2023 revealed no new suspicious changes (BI-RADS 2). Follow-up mammogram in 1 year is recommended. She should return for yearly breast examination if still in [place]. Coding Level of Care Code Est Pt Level 3 (84516) Diagnoses Atypical ductal hyperplasia of right breast N60.91
== END 2023-10-16 10:15 | disposition home or self-care (01) ==
PROVIDERS: PCP Internal Medicine; Visit Provider Surgery
DX: N60.91 Unspecified benign mammary dysplasia of right breast (principal)
CPT/HCPCS: 99213

== ENCOUNTER → 2023-10-16 09:46 | Outpatient (BNVA) | payer MEDICARE, BC, SELFPAY | PROVIDERS: PCP Internal Medicine; Visit Provider Surgery | DX: N60.91 Unspecified benign mammary dysplasia of right breast (principal) | CPT/HCPCS: 99212 ==

== ENCOUNTER 2023-11-07 09:32 | Outpatient (AMB) | payer MEDICARE, BC, SELFPAY ==
[2023-11-07 09:33] VITALS: BP 150/58; PULSE 65; BMI 32.5
--- NOTE | 2023-11-07 09:33 | A.OFFVIS_ITS ---
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 Accompanied by: Self / Same As Patient Allergies lisinopril Adverse Reaction (Verified 10/16/23 10:05) Cough Medication List - Last Reconciled 11/07/23 by Constantino Magallanes MD amlodipine 10 mg PO DAILY ascorbate calcium (vitamin C) 500 mg PO DAILY aspirin 81 mg PO DAILY atorvastatin 10 mg PO DAILY calcium-vitamin D3-vitamin K 500-100-40 mg-unit-mcg 1 tab PO DAILY cholecalciferol (vitamin D3) 25 mcg PO DAILY glucosamine-chondroitin 250-200 mg (Osteo Bi-Flex) 2 tabs PO TID losartan 100 mg PO DAILY metoprolol succinate ER 100 mg PO DAILY jorcrkxr-jxcktxo-wlrf-lutein tabs PO HPI Comments Details: Thank you for referring gene in cardiology consultation today for symptoms of palpitation and dizziness. 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 In the early part of year she was very stressed out due to the health of her who was suffering from chronic neurologic disorder. At that time she was getting a lot of episodes of palpitation where she would feel very irregular fast heart rate associated with shortness of breath and lightheadedness. Symptoms would then last for 10-15 minutes and subside. Her unfortunately in August and since then she says as the stress level has gone down she has not having these symptoms anymore. She denies any other symptoms. She is long history of skipped heartbeats which are not very bothersome to her. She says since August her blood pressure is also currently better controlled. She is taking all her medications. She has not able to walk for long distance due to her imbalance. However she denies any exertional chest pain or shortness of breath. No heart failure symptoms. [facility] Medical History Intermittent lightheadedness Semicircular canal dehiscence syndrome Postural dizziness On beta danyell at home Elevated cholesterol HTN (hypertension) Family history of colon cancer in mother Impaired fasting glucose Cough due to TRACE inhibitor Arthralgia Atypical ductal hyperplasia of right breast Surgical History Hx of colonoscopy History of right breast biopsy Family History Father History of heart attack Social History Housing: House Alcohol intake: never Patient Tobacco Use Status: Never used Tobacco e-Cigarette/Vaping Use: Never Used Second Hand Smoke Exposure: No service: No Current occupational status: retired Cognitive needs: No Hearing needs: No Vision needs: No Review of Systems Const Denies chills, Denies daytime sleepiness, Denies fatigue, Denies fever(s), Denies lethargy, Denies snoring, Denies stops breathing during sleep, Denies weight gain, Denies weight loss and Denies other Eyes Denies loss of vision ENT Reports hearing loss Card Denies chest pain, Denies irregular heart rhythm, Denies claudication, Denies leg edema, Denies lightheadedness, Denies palpitations, Denies dyspnea, Denies dyspnea on exertion, Denies orthopnea and Reports other Resp Denies cough, Denies excessive phlegm production, Denies dyspnea, Denies dyspnea on exertion and Denies snoring GI Denies abdominal pain, Denies hematochezia, Denies change in bowel habits, Denies nausea and Denies vomiting Denies dysuria Musc Denies arthralgias, Denies muscle weakness and Denies numbness Skin/Breast Reports as per HPI, Denies nail changes and Denies rash Neuro Denies loss of vision, Denies memory loss and Denies numbness Psych Reports anxiety, Denies depression and Denies memory loss Endo Denies fatigue and Denies palpitations Drake/Lymph Denies easy bruising Physical Exam Vital Signs: Last Vital Signs Pulse 65 11/07/23 09:33 BP 150/58 H 11/07/23 09:33 BMI result Body Mass Index 32.5 Const General: cooperative, comfortable, no acute distress, alert and awake Nutritional Appearance: obese Orientation/consciousness: patient oriented x3 Limitations: no limitations HEENT Head: Yes normocephalic and Yes atraumatic Neck Neck: Yes trachea midline, Yes supple and Yes no JVD Resp Effort & Inspection: normal respiratory effort Auscultation: clear to auscultation bilaterally Cardio Jugular venous distension: no JVD Palpation: normal PMI Rate: regular rate Rhythm: regular rhythm Heart sounds: S1 normal heart sound present, S2 normal heart sound present, no click, no gallops, no murmurs and no rubs GI Auscultation: normal bowel sounds Skin General skin exam: no rashes or lesions noted Neuro General: patient oriented x3 and no focal motor deficits Extrem General: Yes no clubbing, cyanosis or edema Psych Appearance: grossly normal Office Procedures EKG Details: EKG shows normal sinus rhythm with nonspecific ST T wave change [id number], Complete Assessment & Plan Assessment & Plan (1) Palpitations: Code(s): R00.2 - Palpitations Category: Medical Plan: Patient having symptoms of palpitation under stressful situations. The symptoms have not subsided since her stress level has reduced. Her pattern of symptoms highly concerning for possibility of atrial fibrillation, other differential diagnosis include SVT and/or anxiety related sinus tachycardia. Although given her risk factors atrial fibrillation is likely. However at this point time she was having no symptoms and therefore any form of monitoring at this point time would be very low yield and this was discussed with her. I would suggest her to invest in the phone based EKG device, and obtain EKG when she gets the symptom. Advise an echocardiogram to evaluate for structural heart disease. This will be scheduled in near future. (2) Hypertension: Code(s): I10 - Essential (primary) hypertension Category: Medical Qualifiers: Hypertension type: primary hypertension Qualified Code(s): I10 - Essential (primary) hypertension Plan: Hypertension which is currently well optimized advised to monitor blood pressure at home maintain a log. Goal blood pressure less than 130/84. Continue current therapy. Importance of good blood pressure control was discussed. Low-salt diet was discussed advised to participate in regular physical activity as much as tolerated although she is limited due to her balance issues related to her semi circular canal disorder. Follow up in the clinic if need be. Thank you for allowing me to partake in her care Coding Level of Care Code New Pt Level 4 (89506) Diagnoses Palpitations R00.2 Primary hypertension I10 Hypertension type: primary hypertension CPT Codes EKG - CPT: 95298-[id number], Complete ([id number])
== END 2023-11-07 10:42 | disposition home or self-care (01) ==
PROVIDERS: PCP Internal Medicine; Visit Provider Internal Medicine Cardiovascular Disease
DX: R00.2 Palpitations (principal); I10 Essential (primary) hypertension
CPT/HCPCS: 93010; 99204

== ENCOUNTER → 2023-11-07 09:32 | Outpatient (BNVA) | payer MEDICARE, BC, SELFPAY | PROVIDERS: PCP Internal Medicine; Visit Provider Internal Medicine Cardiovascular Disease | DX: I10 Essential (primary) hypertension (principal); R00.2 Palpitations | CPT/HCPCS: 93005; 99202 ==

== ENCOUNTER → 2023-11-20 12:45 | Outpatient (REF) | payer MEDICARE, BC, SELFPAY ==
--- NOTE | 2023-11-20 12:49 | CA_ITS ---
Transthoracic Echocardiogram Patient (Last, First, Middle): Claudio Reyna C Gender: Female Date of : 1955 Age: 68 Procedure Date: 11/20/2023 Procedure Type: Transthoracic Echocardiogram Location: OP Height: 170.18 cm Weight: 93.9 kg BSA: 2.05 m2 Heart Rate: 61 bpm BP: 146 / 60 mmHg Fabrication Supervisor: IVAN Referring MD: Constantino Magallanes MD Kayak Maker: Constantino Magallanes MD Symptoms: R00.2 - Palpitations Study Quality: Fair ECG Rhythm: Sinus Conclusions: - 1. Low normal LV ejection fraction with LVEF of 50-55% with moderate asymmetric septal hypertrophy with grade 1 diastolic dysfunction 2. Calcific aortic and mitral valve changes noted with normal cardiac valvular Doppler 3. Normal measured RV systolic pressure 4. Abnormal flow noted in pulmonary arterial branch, consider further imaging such as cardiac MRI Findings Left Ventricle Normal left ventricular cavity size. There is normal left ventricular wall thickness. The left ventricular systolic function is low normal. The visually estimated ejection fraction is between 50-55%. Regional wall motion abnormalities can not be excluded due to suboptimal endocardial definition. Spectral Doppler is indicative of an impaired relaxation filling pattern. E/E prime ratio is <8, consistent with normal filling pressures. Evidence suggests grade I (mild) diastolic dysfunction. There is moderate septal asymmetric hypertrophy. Right Ventricle Normal right ventricular cavity size and systolic function. Atria The left atrium is normal in size. Interatrial shunt cannot be excluded. The right atrium was not well visualized. Aortic Valve The aortic valve was not well visualized. There is mild calcification of the aortic valve. There is no aortic valve stenosis. There is no aortic valve regurgitation. Mitral Valve There is mild anterior and moderate posterior mitral leaflet thickening. There is moderate mitral annular calcification. There is trace mitral valve regurgitation. There is no mitral valve stenosis. Pulmonic Valve The pulmonic valve is likely normal. There is trace pulmonic valve regurgitation. Tricuspid Valve Likely normal tricuspid valve structure and function. There is trace tricuspid valve regurgitation. The right ventricular systolic pressure is normal. The right ventricular systolic pressure is 25 mmHg. Normal right atrial pressure. There is no evidence of pulmonary hypertension. Great Vessels The aorta was not well visualized. The pulmonary artery was not well visualized. There is no dilatation of the ascending aorta measuring 3.20 cm. on one view in the parasternal short axis view there appears to be abnormal color Doppler flow into 1 of the pulmonary arterial branches. Etiology of this is unclear. May require further imaging Venous The inferior vena cava is normal in size and collapses greater than 50% with inspiration. Pericardium/Pleural The pericardium was not well visualized. Prior Study Comparison No prior study available for comparison. Measurements 2D Linear Measurements IVSd: 1.62 0.6-0.9/0.6-1.0 cm LVIDd: 5.35 3.9-5.3/4.2-5.9 cm LVIDd Index: 2.61 2.4-3.2/2.2-3.1 cm/m2 LVIDs: 3.56 2.0-3.6 cm LVPWd: 0.91 0.7-1.1 cm LA Diam: 4.70 2.7-3.8/3.0-4.0 cm LAIDs Index: 2.29 1.5-2.3 cm/m2 LV Mass: 348.85 67-162/88-224 g LV Mass Index: 170.17 43-95/49-115 g/m2 LVOT Diam: 2.00 3.0+(-)1.3 cm 2D Systolic Function EF 4C: 49.00 >55% EF 2C: 58.00 >55% EF BiP: 54.50 >55% Mitral Valve MV Pk E: 0.56 MV PK A: 0.79 MV Decel Time: 155.00 E/A: 0.70 E'Lateral: 8.70 E'Medial: 3.81 E/E' Med: 14.70 E/E' Lat: 6.40 PHT: 45.00 MVA PHT: 4.89 Decel Linn: 3.62 Aortic Valve AoV Pk Timur: 1.85 AoV Pk Grad: 14.00 KRISHNA: 2.46 LVOT LVOT Pk Timur: 1.33 LVOT Mn Timur: 0.83 LVOT VTI: 0.30 LVOT Pk Grad: 7.00 LVOT Mn Grad: 3.00 LVOT Diam: 2.00 LVOT Area: 3.14 Diastolic Function MV Pk E: 0.56 MV Pk A: 0.79 E/A: 0.70 E'Medial: 3.81 E/E' Med: 14.70 E' Laterial: 8.70 E/E' Lat: 6.40 Right Ventricle TAPSE (mm): 18.90 TVS' Timur: 15.20 Tricuspid Valve TR Pk Timur: 2.33 TR Pk Grad: 22.00 RA Press: 3.00 RVSP: 25.00 Great Vessels Aorta Sinus of Valsalva: 2.90 2.0-3.5 cm Ao Asc: 3.20 2.1-3.4 cm Pulmonary Veins Pulm Vein S/D 1.80 Pulmonary Valve PV Pk Timur: 0.91 Peak PV Grad: 3.00 Updated in Other Vendor System with Status of Final Constantino Magallanes MD electronically signed on 11/21/2023 1:59:31 PM with status of Final
== END ==
LOC: HO.CARD 12:45
PROVIDERS: PCP Internal Medicine; Visit Provider Internal Medicine Cardiovascular Disease
DX: R00.2 Palpitations (principal)
CPT/HCPCS: 93306

== ENCOUNTER → 2023-11-20 12:49 | Outpatient (BNV) | payer MEDICARE, BC, SELFPAY | PROVIDERS: PCP Internal Medicine; Visit Provider Internal Medicine Cardiovascular Disease | DX: I34.81 Nonrheumatic mitral (valve) annulus calcification (principal); I35.8 Other nonrheumatic aortic valve disorders; R93.1 Abnormal findings on diagnostic imaging of heart and coronary circulation; I42.2 Other hypertrophic cardiomyopathy | CPT/HCPCS: 93306 ==

== ENCOUNTER 2023-12-06 08:57 | Outpatient (REF) | payer MEDICARE, BC, SELFPAY ==
[2023-12-06 10:16] LABS: Estimated Average Glucose 117 mg/dL; Hemoglobin A1c % 5.7 % (<6.0)
[2023-12-06 11:25] LABS: Alanine Aminotransferase 25 U/L (0-31); Anion Gap 12 (12-20); Aspartate Amino Transferase 24 U/L (5-31); Blood Urea Nitrogen 19 mg/dL (9-16); Calcium 9.7 mg/dL (8.4-10.2); Carbon Dioxide 27 mmol/L (22-29); Chloride 107 mmol/L (96-108); Cholesterol 159 mg/dL (<200); Estimated Glomerular Filt Rate 58; Glucose Fasting 132 mg/dL (60-99); HDL Cholesterol 50 mg/dL (>40); LDL Cholesterol Calculated 72 mg/dL (<100); Sodium 142 mmol/L (135-145); Triglycerides 187 mg/dL (<150)
== END 2023-12-06 08:58 | disposition home or self-care (01) ==
LOC: HO.HMGCLDS 08:57
PROVIDERS: PCP Internal Medicine; Visit Provider Internal Medicine
DX: I10 Essential (primary) hypertension (principal); E78.00 Pure hypercholesterolemia, unspecified; R73.01 Impaired fasting glucose
CPT/HCPCS: 36415; 80048; 80061; 83036; 84450; 84460

== ENCOUNTER 2023-12-12 11:44 | Outpatient (AMB) | payer MEDICARE, BC, SELFPAY ==
--- NOTE | 2023-12-12 12:25 | MHC.PC.OV ---
Vital Signs 12/12/23 12:26 Height 5 ft 7 in Weight 206 lb BMI 32.3 BP 152/62 H Blood Pressure Location Lt brachial Position Sitting Pulse 61 Pulse Source Pulse Oximeter Pulse Oximetry (%) 96 Oxygen Delivery Method Room Air Intake Visit Reasons: Annual PE Intake Note: Pt is here today for her PE Allergies lisinopril Adverse Reaction (Verified 12/12/23 12:44) Cough Medication List - Last Reconciled 12/12/23 by Falguni Chavez MD amlodipine 10 mg PO DAILY ascorbate calcium (vitamin C) 500 mg PO DAILY aspirin 81 mg PO DAILY atorvastatin 10 mg PO DAILY calcium-vitamin D3-vitamin K 500-100-40 mg-unit-mcg 1 tab PO DAILY cholecalciferol (vitamin D3) 25 mcg PO DAILY glucosamine-chondroitin 250-200 mg (Osteo Bi-Flex) 2 tabs PO TID losartan 100 mg PO DAILY metoprolol succinate ER 100 mg PO DAILY tysahggn-pzzdabk-yhgj-lutein tabs PO Tobacco use date assessed: 12/12/23 Fall risk assessment: No Falls in past year Last assessed Fall Risk: 12/12/23 Dental Screening Dental Screen Date: 12/12/23 Did you have a dental visit in the last 12 months?: Yes Did you have a dental problem in the last 6 months where you did not have access to dental care?: No Was dental information given to patient?: Patient has dentist HPI Annual PE HPI Details 68-year-old lady here today for physical exam. She has hypertension, currently taking amlodipine 10 mg daily and losartan 100 mg daily in addition to metoprolol succinate ER 100 mg daily . Blood pressure slightly elevated today, patient however states that it has been running on average at 1 at home when she checks with her own blood pressure monitor Has impaired fasting glucose, with latest hemoglobin A1c at 5.7%. Currently on atorvastatin 10 mg daily for treatment of her high cholesterol, with latest fasting lipids showing results within normal limits except for elevated LDL cholesterol at 187 mg/dL. Patient does admit to being off her diet for the last 2 months since her , now back on track and started exercising again , and cutting back on her intake of junk food and processed foods. She is up-to-date with her breast cancer screening and osteoporosis screening, with last mammogram and bone density 124 showing normal findings. Had a screening colonoscopy done by Dr. Joyce in 2022 with removal of 2 hyperplastic polyps. Repeat colonoscopy due in 2027 due to positive family history for colon cancer. [facility] Medical History (Updated 12/13/23 @ 01:27 by Falguni Chavez MD) Hypertriglyceridemia Semicircular canal dehiscence syndrome Postural dizziness Elevated cholesterol HTN (hypertension) Family history of colon cancer in mother Impaired fasting glucose Cough due to TRACE inhibitor Arthralgia Atypical ductal hyperplasia of right breast Surgical History Hx of colonoscopy History of right breast biopsy Family History Father History of heart attack Social History Housing: House Alcohol intake: never Patient Tobacco Use Status: Never used Tobacco e-Cigarette/Vaping Use: Never Used Second Hand Smoke Exposure: No service: No Current occupational status: retired Cognitive needs: No Hearing needs: No Vision needs: No Questionnaire PHQ-9 Over the last 2 weeks, how often have you been bothered by any of the following problems? 1. Little interest or pleasure in doing things: not at all 2. Feeling down, depressed, or hopeless: not at all 3. Trouble falling or staying asleep, or sleeping too much: not at all 4. Feeling tired or having little energy: not at all 5. Poor appetite or overeating: not at all 6. Feeling bad about yourself - or that you are a failure or have let yourself or your family down: not at all 7. Trouble concentrating on things, such as reading the newspaper or watching television: not at all 8. Moving or speaking so slowly that other people could have noticed. Or the opposite - being so fidgety or restless that you have been moving around a lot more than usual: not at all 9. Thoughts that you would be better off or of hurting yourself in some way: not at all Total score: 0 Depression Screening Interpretation: Negative Depression Screening Done: Yes 43890 - PHQ-9 Billing: Yes Source: Developed by Drs. Sancho Grant, Corina Hollingsworth, Олег Benz and colleagues, with an educational devonte from [employer]. Thrive Questionnaire Date Thrive assessed: 12/12/23 I am a: Patient What is your living situation today?: I have a steady place to live Within the past 12 months, did the food you bought not last and you didn't have the money to get more?: Never true Within the past 12 months, did you worry whether your food would run out before you got money to buy more?: Never true Do you have trouble paying for medicines?: No Do you have trouble getting transportation to medical appointments?: No Do you have trouble paying your heating and electricity bill?: No Do you have trouble taking care of your child, family member or friend?: No Do you have trouble with day-to-day activities such as bathing, preparing meals, shopping, managing finances, etc.?: No Are you currently unemployed and looking for a job?: No Are you interested in more education?: No Please select the resources that you would like help with: Housing/Group Home Currently or been in a relationship where the following occur: No concerns reported THRIVE Score: 0 AUDIT C Alcohol Use Questionnaire (AUDIT-C) 1. How often do you have a drink containing alcohol?: Never Total Score: 0 ELIU-7 AMB Questionnaire ELIU-7 Date ELIU - 7 assessed: 12/12/23 Feeling nervous, anxious, or on edge: 0 = Not at all Not being able to stop or control worryin = Not at all Worrying too much about different things: 0 = Not at all Trouble relaxin = Not at all Being so restless that it is hard to sit still: 0 = Not at all Becoming easily annoyed or irritable: 0 = Not at all Feeling afraid as if something awful might happen: 0 = Not at all Total ELIU-7 score (0-4 normal; 5-9 mild; 10-14 moderate; 15-21 severe): 0 Source: Developed by Drs. Sancho Grant, Corina Hollingsworth, Олег Benz and colleagues, with an educational devonte from [employer]. ELIU-7 Assessment Billing ELIU-7 Assessment Tool: ELIU-7 Assessment 20581 Review of Systems Const Denies chills, Denies daytime sleepiness, Denies fatigue, Denies fever(s), Denies lethargy and Denies snoring Eyes Denies change in vision ENT Reports no additional complaints Card Denies chest pain, Denies irregular heart rhythm, Denies claudication, Denies leg edema, Denies lightheadedness, Denies palpitations and Denies dyspnea Resp Denies cough, Denies excessive phlegm production, Denies dyspnea and Denies snoring GI Denies abdominal pain, Denies hematochezia, Denies change in bowel habits, Denies nausea and Denies vomiting Denies dysuria Musc Denies arthralgias, Denies muscle weakness and Denies numbness Skin/Breast Reports as per HPI, Denies nail changes and Denies rash Neuro Denies memory loss and Denies numbness Psych Denies depression and Denies memory loss Endo Denies fatigue and Denies palpitations Drake/Lymph Denies easy bruising Aller/Immun Reports no additional complaints Physical exam (Primary Care) Vital Signs: Last Vital Signs Pulse 61 12/12/23 12:26 BP 152/62 H 12/12/23 12:26 Pulse Ox 96 12/12/23 12:26 Oxygen Delivery Method Room Air 12/12/23 12:26 BMI result Body Mass Index 32.3 Tobacco/Smoking Status: Tobacco use Status Tobacco use date assessed 12/12/23 12/12/23 12:29 Patient Tobacco Use Status Never used Tobacco 12/12/23 12:29 e-Cigarette/Vaping Use Never Used 12/12/23 12:29 PHQ-9: PHQ-9 Score PHQ-9: Total score 0 12/13/23 01:19 Depression Screening Interpretation: Negative Thrive Assessment: Date of Thrive Assessment Date Thrive assessed 12/12/23 12/12/23 12:29 Currently or been in a relationship where the following occur: No concerns reported Advance Care Planning discussion: Completed/Scanned Date of discussion: 12/12/23 Who was present: Patient Forms completed: MOLST Time spent: 16-45 minutes Actual minutes spent: 16 Const General: comfortable, no acute distress and alert Nutritional Appearance: obese Orientation/consciousness: patient oriented x3 HENMT Ears: external ears normal General nose exam: Normal external nose present Mouth: moist mucous membranes Eyes General: appearance normal, both eyes and all related structures Conjunctivae: conjunctivae normal Sclerae: sclerae normal Pupils: Equal, round and reactive pupils present EOM: EOMs intact bilaterally Neck Neck: Yes full ROM, Yes no lymphadenopathy and Yes supple Resp Effort & Inspection: normal respiratory effort and able to speak in complete sentences Auscultation: clear to auscultation bilaterally Cardio Rate: regular rate Rhythm: regular rhythm Heart sounds: S1 normal heart sound present and S2 normal heart sound present GI Palpation (GI): Soft to palpation, nontender and no masses Auscultation: normal bowel sounds General: Yes no CVA tenderness Back/Spine/Pelvis Back: no CVA tenderness Skin General skin exam: no rashes or lesions noted Neuro General: patient oriented x3, gait normal, tone normal, moves all extremities, Normal light touch and pain sensation and no focal motor deficits Cranial nerves: Yes CN's II-XII intact bilaterally and Yes Equal, round and reactive pupils present Cognition (Neuro): normal cognition Extrem Other: S Psych Appearance: grossly normal and well kempt Mental Status: mental status grossly normal Speech and movement: Normal speech and movement present Affect: normal affect Attitude: cooperative Thought process: Normal thought process present Thought content: Normal thought content present Results Reviewed Results Reviewed: Laboratory Tests 12/06/23 09:04 Estimat Average Glucose 117 Hemoglobin A1c % 5.7 Name: Claudio Reyna Age/Sex: 68/F : 1955 Unit#: [id number] Attend Dr: Falguni Chavez MD Re12/06/23 Status: DEP REF Location: [facility] Disch: SPEC : [id number] HARLAN: 12/06/23 STATUS: COMP REQ : [id number] RECD: 12/06/[address]: Falguni Chavez MD COMP: 12/06/23 ENTERED: 12/06/[address]: ORDERED: Met Prof Fast, AST, ALT, Lipid Panel Test Result Flag Reference Sodium 142 135-145 mmol/L Potassium 4.0 3.3-5.1 mmol/L CL 107 96-108 mmol/L CO2 27 22-29 mmol/L Gap 12 12-20 BUN 19 H 9-16 mg/dL Creat 0.95 0.5-1.4 mg/dL EGFR 58 NOTE: For -Vincentian individuals, multiply the result by 1.210. Chronic Kidney Disease: Estimated GFR < 60 mL/min/1.73m2 Severe Kidney Disease: Estimated GFR < 15 mL/min/1.73m2 FBS 132 H 60-99 mg/dL A fasting glucose of 126 mg/dl or greater on more than one occasion is considered diagnostic of diabetes. CA 9.7 8.4-10.2 mg/dL AST (GOT) 24 5-31 U/L ALT (GPT) 25 0-31 U/L Triglyceride 187 H <150 mg/dL Desirable Triglyceride: less than 150 mg/dL Borderline High Triglyceride 150-199 mg/dL High Triglyceride: 200-499 mg/dL Very High Triglyceride: greater than or equal to 5OO mg/dL Cholesterol 159 <200 mg/dL Desirable Cholesterol: less than 200 mg/dL Borderline High Cholesterol: 200-239 mg/dL High Cholesterol: greater than 239 mg/dL LDL Calculated 72 <100 mg/dL Desirable LDL: less than 100 mg/dL Near Optimal/Above Optimal LDL: 110-129 mg/dL Borderline High LDL: 130-159 mg/dL High LDL: 160-189 mg/dL Very High LDL: greater than or equal to 190 mg/dL HDL 50 >40 mg/dL Desirable HDL: greater than 40 mg/dL Note: This HDL assay may give artificially low results in patients with liver disease. Assessment and Plan Assessment & Plan (1) Annual visit for general adult medical examination with abnormal findings: Code(s): Z00.01 - Encounter for general adult medical examination with abnormal findings Plan: Recent fasting lab results reviewed with patient. Recommended dental visit every 6 months and regular eye exams. Take adequate calcium in diet and vitamin-D 3 at 2000 IU per cap once a day, in addition to weight-bearing exercises to help maintain good muscle tone and weight control. Instructed to do self-breast exam, and continue with yearly mammogram, currently up-to-date together with her bone density scan.. She is up-to-date with her vaccinations except for her Shingrix vaccine. Up-to-date with her screening colonoscopy (2) Hypertension: Code(s): I10 - Essential (primary) hypertension Qualifiers: Hypertension type: primary hypertension Qualified Code(s): I10 - Essential (primary) hypertension Plan: Continue losartan 100 mg daily and metoprolol 100 mg daily, in addition to amlodipine 10 mg daily at night. Reinforced importance of following a low-salt diet, continue monitoring blood pressure at home, with a goal of less than 130/90. (3) Hypertriglyceridemia: Code(s): E78.1 - Pure hyperglyceridemia Plan: Continue with atorvastatin 10 mg daily, in addition to adherence to healthy eating habits and regular exercise (4) Encounter for counseling regarding advance directives: Code(s): Z71.89 - Other specified counseling Plan: Initiated the conversation about Advanced Directives. Advanced Directives help patients prepare for current and future decisions about their medical treatment and place of care. Discussed with patient that it is a process where a patients current condition and prognosis are reviewed, their wishes for information regarding their illness are elicited, and likely medical dilemmas are presented and options discussed. The form can be amended as needed, reviewed yearly and make changes as needed Orders: Orders Alanine Aminotransferase 06/01/24 E78.1 - Pure hyperglyceridemia, I10 - Essential (primary) hypertension, Z00.01 - Encounter for general adult medical examination with abnormal findings Aspartate Amino Transferase 06/01/24 E78.1 - Pure hyperglyceridemia, I10 - Essential (primary) hypertension, Z00.01 - Encounter for general adult medical examination with abnormal findings, Z71.89 - Other specified counseling Basic Metabolic Panel Fasting 06/01/24 E78.1 - Pure hyperglyceridemia, I10 - Essential (primary) hypertension, Z00.01 - Encounter for general adult medical examination with abnormal findings, Z71.89 - Other specified counseling Lipid Panel 06/01/24 E78.1 - Pure hyperglyceridemia, I10 - Essential (primary) hypertension, Z00.01 - Encounter for general adult medical examination with abnormal findings, Z71.89 - Other specified counseling Vitamin D 25-OH Total 06/01/24 E78.1 - Pure hyperglyceridemia, I10 - Essential (primary) hypertension, Z00.01 - Encounter for general adult medical examination with abnormal findings, Z71.89 - Other specified counseling Hemoglobin A1c 06/01/24 E78.1 - Pure hyperglyceridemia, I10 - Essential (primary) hypertension, Z00.01 - Encounter for general adult medical examination with abnormal findings, Z71.89 - Other specified counseling Coding Level of Care Code Est Pt Prev Care >65y(38416) Diagnoses Annual visit for general adult medical examination with abnormal findings Z00.01 Primary hypertension I10 Hypertension type: primary hypertension Hypertriglyceridemia E78.1 Encounter for counseling regarding advance directives Z71.89 Additional Codes ELIU-7 Assessment Billing - ELIU-7 Assessment Tool: ELIU-7 Assessment 25446 ([id number]) Vital Signs *Quality* - Advance Care Planning discussion: Completed/Scanned ([id number]) Vital Signs *Quality* - Time spent: 16-45 minutes ([id number])
[2023-12-12 12:26] VITALS: BP 152/62; PULSE 61; O2SAT 96; BMI 32.3
== END 2023-12-12 13:28 | disposition home or self-care (01) ==
PROVIDERS: PCP Internal Medicine; Visit Provider Internal Medicine
DX: Z00.00 Encounter for general adult medical examination without abnormal findings (principal); I10 Essential (primary) hypertension; E78.1 Pure hyperglyceridemia; Z71.89 Other specified counseling
CPT/HCPCS: 1123F; 99397; 99497

== ENCOUNTER 2024-05-20 14:04 | Outpatient (REF) | payer MEDICARE, BC, SELFPAY | END 2024-05-20 14:05 | disposition home or self-care (01) | LOC: HO.MAMMO 14:04 | PROVIDERS: PCP Internal Medicine; Visit Provider Internal Medicine | DX: Z12.31 Encounter for screening mammogram for malignant neoplasm of breast (principal) | CPT/HCPCS: 77063; 77067 ==

== ENCOUNTER → 2024-05-20 14:15 | Outpatient (BNV) | payer MEDICARE, BC, SELFPAY | PROVIDERS: PCP Internal Medicine; Visit Provider Internal Medicine | DX: Z12.31 Encounter for screening mammogram for malignant neoplasm of breast (principal) | CPT/HCPCS: 77063; 77067 ==

== ENCOUNTER 2024-08-13 09:17 | Outpatient (REF) | payer MEDICARE, BC, SELFPAY ==
[2024-08-13 13:52] LABS: Estimated Average Glucose 114 mg/dL; Hemoglobin A1C 146.5041 umol/L; Hemoglobin A1c % 5.6 % (<6.0); Total Hemoglobin (HGBA1C) 3918.0246 umol/L
[2024-08-13 14:16] LABS: Alanine Aminotransferase 28 U/L (0-31); Anion Gap 10 (12-20); Aspartate Amino Transferase 25 U/L (5-31); Blood Urea Nitrogen 22 mg/dL (9-16); Calcium 9.7 mg/dL (8.4-10.2); Carbon Dioxide 25 mmol/L (22-29); Chloride 109 mmol/L (96-108); Cholesterol 141 mg/dL (<200); Estimated Glomerular Filt Rate > 60; Glucose Fasting 131 mg/dL (60-99); HDL Cholesterol 49 mg/dL (>40); LDL Cholesterol Calculated 65 mg/dL (<100); Potassium 4.2 mmol/L (3.3-5.1); Sodium 140 mmol/L (135-145); Triglycerides 135 mg/dL (<150); Vitamin D 25-OH Total 63.1 ng/mL (>30)
== END 2024-08-13 09:18 | disposition home or self-care (01) ==
LOC: HO.HMGCLDS 09:17
PROVIDERS: PCP Internal Medicine; Visit Provider Internal Medicine
DX: Z00.01 Encounter for general adult medical examination with abnormal findings (principal); Z71.89 Other specified counseling; I10 Essential (primary) hypertension; E78.1 Pure hyperglyceridemia; Z13.1 Encounter for screening for diabetes mellitus
CPT/HCPCS: 36415; 80048; 80061; 82306; 83036; 84450; 84460

== ENCOUNTER 2024-08-20 10:51 | Outpatient (REF) | payer MEDICARE, BC, SELFPAY ==
[2024-08-23 12:34] LABS: Rubeola IgM (Measles) <1:20 titer
== END 2024-08-20 10:52 | disposition home or self-care (01) ==
LOC: HO.HMGCLDS 10:51
PROVIDERS: PCP Internal Medicine; Visit Provider Internal Medicine
DX: I10 Essential (primary) hypertension (principal); E78.1 Pure hyperglyceridemia; R73.01 Impaired fasting glucose; Z79.899 Other long term (current) drug therapy; Z01.84 Encounter for antibody response examination
CPT/HCPCS: 36415; 86765; 86787; 96127; 99212

== ENCOUNTER 2024-08-20 10:51 | Outpatient (AMB) | payer MEDICARE, BC, SELFPAY ==
--- NOTE | 2024-08-20 11:18 | A.OFFPC_ITS ---
Vital Signs 08/20/24 11:20 Height 5 ft 7 in Weight 203 lb BMI 31.8 BP 132/66 Blood Pressure Location Rt brachial Position Sitting Respiration 15 Pulse 60 Pulse Source Pulse Oximeter Temp 98.1 F Temp Source Oral Pulse Oximetry (%) 96 Oxygen Delivery Method Room Air Intake Visit Reasons: 6 Mo Follow Up Intake Note: Pt is here today for her 6mo. f/u Allergies lisinopril Adverse Reaction (Verified 12/12/23 12:44) Cough Medication List - Last Reconciled 08/31/24 by Falguni Chavez MD amlodipine 10 mg PO DAILY ascorbate calcium (vitamin C) 500 mg PO DAILY aspirin 81 mg PO DAILY atorvastatin 10 mg PO DAILY calcium-vitamin D3-vitamin K 500 mg-100 unit -40 mcg 1 tab PO DAILY cholecalciferol (vitamin D3) 25 mcg PO DAILY glucosamine-chondroitin 250-200 mg (Osteo Bi-Flex) 2 tabs PO TID losartan 100 mg PO DAILY metoprolol succinate ER 100 mg PO DAILY gkcvjhjn-mmkjjig-ptkn-lutein tabs PO Tobacco use date assessed: 08/20/24 Fall risk assessment: No Falls in past year Last assessed Fall Risk: 08/20/24 Dental Screening Dental Screen Date: 08/20/24 Did you have a dental visit in the last 12 months?: Yes Did you have a dental problem in the last 6 months where you did not have access to dental care?: No Was dental information given to patient?: Patient has dentist HPI 6 Mo Follow Up HPI Details 69-year-old lady with hypertension, hype rlipidemia, impaired fasting glucose, here today for her follow-up. She has been taking her medicines as directed, compliant with diet , and has been more active lately, has been feeling well . She is preparing to move out of state to be closer to family. [facility] Medical History Hypertriglyceridemia Semicircular canal dehiscence syndrome Postural dizziness Elevated cholesterol HTN (hypertension) Family history of colon cancer in mother Impaired fasting glucose Cough due to TRACE inhibitor Arthralgia Atypical ductal hyperplasia of right breast Surgical History Hx of colonoscopy History of right breast biopsy Family History Father History of heart attack Social History Housing: House Alcohol intake: never Patient Tobacco Use Status: Never used Tobacco e-Cigarette/Vaping Use: Never Used Second Hand Smoke Exposure: No service: No Current occupational status: retired Cognitive needs: No Hearing needs: No Vision needs: No Questionnaire PHQ-9 Over the last 2 weeks, how often have you been bothered by any of the following problems? 1. Little interest or pleasure in doing things: not at all 2. Feeling down, depressed, or hopeless: not at all 3. Trouble falling or staying asleep, or sleeping too much: not at all 4. Feeling tired or having little energy: not at all 5. Poor appetite or overeating: not at all 6. Feeling bad about yourself - or that you are a failure or have let yourself or your family down: not at all 7. Trouble concentrating on things, such as reading the newspaper or watching television: not at all 8. Moving or speaking so slowly that other people could have noticed. Or the opposite - being so fidgety or restless that you have been moving around a lot more than usual: not at all 9. Thoughts that you would be better off or of hurting yourself in some way: not at all Total score: 0 Depression Screening Interpretation: Negative Depression Screening Done: Yes 14755 - PHQ-9 Billing: Yes Source: Developed by Drs. Sancho Grant, Corina Hollingsworth, Олег Benz and colleagues, with an educational devonte from [employer]. Thrive Questionnaire Date Thrive assessed: 08/13/24 I am a: Patient What is your living situation today?: I have a steady place to live Within the past 12 months, did the food you bought not last and you didn't have the money to get more?: Never true Within the past 12 months, did you worry whether your food would run out before you got money to buy more?: Never true Do you have trouble paying for medicines?: No Do you have trouble getting transportation to medical appointments?: No Do you have trouble paying your heating and electricity bill?: No Do you have trouble taking care of your child, family member or friend?: No Do you have trouble with day-to-day activities such as bathing, preparing meals, shopping, managing finances, etc.?: No Are you currently unemployed and looking for a job?: No Are you interested in more education?: No Please select the resources that you would like help with: None Currently or been in a relationship where the following occur: No concerns reported THRIVE Score: 0 AUDIT C Alcohol Use Questionnaire (AUDIT-C) 1. How often do you have a drink containing alcohol?: Never Total Score: 0 ELIU-7 AMB Questionnaire ELIU-7 Date ELIU - 7 assessed: 12/12/23 Feeling nervous, anxious, or on edge: 0 = Not at all Not being able to stop or control worryin = Not at all Worrying too much about different things: 0 = Not at all Trouble relaxin = Not at all Being so restless that it is hard to sit still: 0 = Not at all Becoming easily annoyed or irritable: 0 = Not at all Feeling afraid as if something awful might happen: 0 = Not at all Total ELIU-7 score (0-4 normal; 5-9 mild; 10-14 moderate; 15-21 severe): 0 Source: Developed by Drs. Sancho Grant, Corina Hollingsworth, Олег Benz and colleagues, with an educational devonte from [employer]. Review of Systems Const Denies fatigue, Denies fever(s), Denies lethargy, Denies poor appetite and Denies snoring Eyes Denies change in vision ENT Reports no additional complaints Card Denies chest pain, Denies irregular heart rhythm, Denies claudication, Denies leg edema, Denies lightheadedness, Denies palpitations and Denies dyspnea Resp Denies cough, Denies excessive phlegm production, Denies dyspnea and Denies snoring GI Denies abdominal pain, Denies hematochezia, Denies change in bowel habits, Denies nausea and Denies vomiting Denies dysuria Musc Denies arthralgias, Denies muscle weakness and Denies numbness Skin/Breast Reports as per HPI, Denies nail changes and Denies rash Neuro Denies memory loss and Denies numbness Psych Denies depression and Denies memory loss Endo Denies fatigue and Denies palpitations Drake/Lymph Denies easy bruising Aller/Immun Reports no additional complaints Physical exam (Primary Care) Vital Signs: Last Vital Signs Temp 98.1 F 08/20/24 11:20 Pulse 60 08/20/24 11:20 Resp 15 08/20/24 11:20 BP 132/66 08/20/24 11:20 Pulse Ox 96 08/20/24 11:20 Oxygen Delivery Method Room Air 08/20/24 11:20 BMI result Body Mass Index 31.8 Tobacco/Smoking Status: Tobacco use Status Tobacco use date assessed 08/20/24 08/20/24 11:23 Patient Tobacco Use Status Never used Tobacco 08/20/24 11:23 e-Cigarette/Vaping Use Never Used 08/20/24 11:23 PHQ-9: PHQ-9 Score PHQ-9: Total score 0 08/20/24 11:40 Depression Screening Interpretation: Negative Thrive Assessment: Date of Thrive Assessment Date Thrive assessed 08/13/24 08/20/24 11:23 Currently or been in a relationship where the following occur: No concerns reported Const General: no acute distress and alert Nutritional Appearance: obese Orientation/consciousness: patient oriented x3 HENMT Ears: external ears normal General nose exam: Normal external nose present Mouth: moist mucous membranes Eyes General: appearance normal, both eyes and all related structures Conjunctivae: conjunctivae normal Sclerae: sclerae normal Pupils: Equal, round and reactive pupils present EOM: EOMs intact bilaterally Neck Neck: Yes full ROM, Yes no lymphadenopathy and Yes supple Resp Effort & Inspection: normal respiratory effort and able to speak in complete sentences Auscultation: clear to auscultation bilaterally Cardio Rate: regular rate Rhythm: regular rhythm Heart sounds: S1 normal heart sound present and S2 normal heart sound present GI Palpation (GI): Soft to palpation, nontender and no masses Auscultation: normal bowel sounds General: Yes no CVA tenderness Back/Spine/Pelvis Back: no CVA tenderness Skin General skin exam: no rashes or lesions noted Neuro General: patient oriented x3, gait normal, tone normal, moves all extremities, Normal light touch and pain sensation and no focal motor deficits Cranial nerves: Yes CN's II-XII intact bilaterally and Yes Equal, round and reactive pupils present Cognition (Neuro): normal cognition Extrem Other: S Psych Appearance: grossly normal and well kempt Mental Status: mental status grossly normal Speech and movement: Normal speech and movement present Affect: normal affect Attitude: cooperative Thought process: Normal thought process present Thought content: Normal thought content present Results Reviewed Results Reviewed: Name: Claudio Reyna Age/Sex: 69/F [facility] 1955 [id number] [id number] Attend Dr: Falguni Chavez MD Re08/13/24 Status: DEP [facility]F [facility] Disch: SPEC : [id number] HARLAN: 08/13/24 STATUS: COMP REQ : [id number] RECD: 08/13/[address]: Falguni Chavez MD COMP: 08/13/24 ENTERED: 08/13/[address] [facility] DR: ORDERED: Met Prof Fast, AST, ALT, Lipid Panel, Vitamin D 25-OH Test Result Flag Reference Sodium 140 135-145 mmol/L Potassium 4.2 3.3-5.1 mmol/L CL 109 H 96-108 mmol/L CO2 25 22-29 mmol/L Gap 10 L 12-20 BUN 22 H 9-16 mg/dL Creat 0.82 0.5-1.4 mg/dL eGFR > 60 Chronic Kidney Disease: Estimated GFR < 60 mL/min/1.73m2 Severe Kidney Disease: Estimated GFR < 15 mL/min/1.73m2 FBS 131 H 60-99 mg/dL A fasting glucose of 126 mg/dl or greater on more than one occasion is considered diagnostic of diabetes. CA 9.7 8.4-10.2 mg/dL AST (GOT) 25 5-31 U/L ALT (GPT) 28 0-31 U/L Triglyceride 135 <150 mg/dL Desirable Triglyceride: less than 150 mg/dL Borderline High Triglyceride 150-199 mg/dL High Triglyceride: 200-499 mg/dL Very High Triglyceride: greater than or equal to 5OO mg/dL Cholesterol 141 <200 mg/dL Desirable Cholesterol: less than 200 mg/dL Borderline High Cholesterol: 200-239 mg/dL High Cholesterol: greater than 239 mg/dL LDL Calculated 65 <100 mg/dL Desirable LDL: less than 100 mg/dL Near Optimal/Above Optimal LDL: 110-129 mg/dL Borderline High LDL: 130-159 mg/dL High LDL: 160-189 mg/dL Very High LDL: greater than or equal to 190 mg/dL HDL 49 >40 mg/dL Desirable HDL: greater than 40 mg/dL Note: This HDL assay may give artificially low results in patients with liver disease. Vitamin D 25-OH 63.1 >30 ng/mL Health Based Reference Values* < 20 ng/mL Deficient 20-30 ng/mL Insufficient > 30 ng/mL Sufficient Laboratory Tests 08/13/24 09:36 Estimat Average Glucose 114 Hemoglobin A1c % 5.6 Coding Level of Care Code Est Pt Level 4 (83953) Complex EM visit Add On G2211 Diagnoses Primary hypertension I10 Hypertension type: primary hypertension Hypertriglyceridemia E78.1 Immunity status testing Z. Impaired fasting glucose R73.01 Additional Codes PHQ-9 - 16984 - PHQ-9 Billing: Yes ([id number]) Assessment & Plan Assessment & Plan (1) Hypertension: Code(s): I10 - Essential (primary) hypertension Category: Medical Qualifiers: Hypertension type: primary hypertension Qualified Code(s): I10 - Essential (primary) hypertension Plan: Blood pressure at goal of less than 130/80. Continue with amlodipine 10 mg daily, and losartan 100 mg once a day in addition to metoprolol 100 mg daily , refills sent. Reinforced importance of following a low sodium diet, getting regular exercise, and lowering stress levels. (2) Hypertriglyceridemia: Code(s): E78.1 - Pure hyperglyceridemia Category: Medical Plan: Continue on atorvastatin 10 mg daily , and reinforced importance of following lo w-cholesterol diet and getting regular exercise. (3) Immunity status testing: Code(s): Z01.84 - Encounter for antibody response examination Plan: Ordered rubeola and varicella IgG antibody (4) Impaired fasting glucose: Code(s): R73.01 - Impaired fasting glucose Category: Medical Plan: Continue adherence to healthy eating and exercise. Orders: Orders Rubeola IgM (Measles) 08/20/24 Z01.84 - Encounter for antibody response exami nation Varicella IgG Antibody 08/20/24 Z.84 - Encounter for antibody response examination Medications: Refilled metoprolol succinate ER 100 mg PO DAILY 90 tabs 3RF amlodipine 10 mg PO DAILY 90 tabs 3RF atorvastatin 10 mg PO DAILY 90 tabs 3RF losartan 100 mg PO DAILY 90 tabs 3RF I10 - Essential (primary) hypertension atorvastatin 10 mg PO DAILY 90 tabs 3RF
[2024-08-20 11:20] VITALS: BP 132/66; PULSE 60; RESP 15; TEMP 36.7; O2SAT 96; BMI 31.8
== END 2024-08-20 13:34 | disposition home or self-care (01) ==
LOC: HO.HMCC 10:52
PROVIDERS: PCP Internal Medicine; Visit Provider Internal Medicine
DX: I10 Essential (primary) hypertension (principal); E78.1 Pure hyperglyceridemia; Z01.84 Encounter for antibody response examination; R73.01 Impaired fasting glucose

== ENCOUNTER 2024-09-05 10:55 | Outpatient (REF) | payer MEDICARE, BC, SELFPAY ==
[2024-09-08 19:54] LABS: Rubeola IgG (Measles) >300.00 AU/mL
== END 2024-09-05 10:56 | disposition home or self-care (01) ==
LOC: HO.HMGCLDS 10:55
PROVIDERS: PCP Internal Medicine; Visit Provider Internal Medicine
DX: Z01.84 Encounter for antibody response examination (principal)
CPT/HCPCS: 36415; 86765